=== PATIENT | male | born 1980 | race Caucasian/White ===

== ENCOUNTER 2017-05-22 21:38 | Inpatient (IN) | payer BC ==
[~2017-05-22] VITALS: Ht 167.6 cm; Wt 88.8 kg
[2017-05-22] MEDS ORDERED: TAMS-14 PO (22:27)
[2017-05-22] MEDS ORDERED: HYDR4TAB PO (22:27)
[2017-05-22] MEDS ORDERED: VANC1VIA2 IV (22:27)
[2017-05-22] MEDS ORDERED: LITH600C2 PO (22:27)
[2017-05-22] MEDS ORDERED: SAN30GM TOP (22:27)
[2017-05-22] MEDS ORDERED: ZOS3375I IV (22:27)
[2017-05-22] MEDS ORDERED: ONDA-43 IV (22:27)
[2017-05-22] MEDS ORDERED: ACET500C5 PO (22:27)
[2017-05-22] MEDS ORDERED: BACL10TA PO (22:27)
[2017-05-22] MEDS ORDERED: ASPI325T4 PO (22:27)
[2017-05-22] MEDS ORDERED: DULO60CA6 PO (22:27)
[2017-05-22] MEDS ORDERED: GABA600T PO (22:27)
[2017-05-22] MEDS ORDERED: AMIT100T2 PO (22:27)
[2017-05-22 22:39] VITALS: Ht 167.6 cm; Wt 88.8 kg
[2017-05-22] MEDS: HYDROmorphONE 2 MG TAB PO PRN (23:16)
[2017-05-23] VITALS (12 sets, daily range): BP systolic 108–124; BP diastolic 51–79; PULSE 80–92; RESP 11–20
[2017-05-23] MEDS ORDERED: NACL 0.9% 3 ML SYG IV SCH
[2017-05-23] MEDS ORDERED: ACETAMINOPHEN 325 MG TAB PO PRN
[2017-05-23] MEDS ORDERED: BISACODYL (EC) 5 MG TAB PO PRN
[2017-05-23] MEDS ORDERED: VANCOMYCIN IV PER PHARMACY XX SCH
[2017-05-23] MEDS ORDERED: DOCUSATE SODIUM 100 MG CAP PO PRN
[2017-05-23] MEDS: SOD CHLORIDE 0.9% 1,000 ML IV SCH ×3 (00:21→20:46)
[2017-05-23] MEDS: HEPARIN 5,000 UNIT/0.5 ML VIAL SC SCH ×2 (00:22→05:42)
[2017-05-23] MEDS ORDERED: VANCOMYCIN 1.75 GM in NS 500 ML IVPB ONE (01:00)
[2017-05-23 01:34] LABS: ADD SCAN DIFF NO
[2017-05-23 01:45] LABS: BASOPHIL # 0.1 10^3/ul (0.0-0.1); BASOPHILS % 1.7 % (0.0-2.0); EOSINOPHILS # 0.5 10^3/ul (0.0-0.5); EOSINOPHILS % 5.9 % (0.0-7.0); HEMATOCRIT 30.6 % (42.0-52.0); HEMOGLOBIN 9.5 g/dl (14.0-18.0); LYMPHOCYTES # 1.9 10^3/ul (0.8-2.9); LYMPHOCYTES % 22.2 % (15.0-51.0); MEAN CORPUSCULAR HEMOGLOBIN 26.3 pg (29.0-33.0); MEAN CORPUSCULAR VOLUME 84.8 fl (82.0-101.0); MEAN PLATELET VOLUME 9.5 fl (7.4-10.4); MONOCYTE # 0.7 10^3/ul (0.3-0.9); MONOCYTES % 8.5 % (0.0-11.0); NEUTROPHIL # 5.2 10^3/ul (1.6-7.5); NEUTROPHILS % 61.5 % (39.0-77.0); PLATELET COUNT 385 10^3/UL (140-415); RED BLOOD COUNT 3.61 10^6/ul (4.70-6.10); WHITE BLOOD COUNT 8.5 10^3/ul (4.8-10.8)
[2017-05-23 02:12] LABS: ALBUMIN 4.4 g/dl (3.3-4.9); ALBUMIN/GLOBULIN RATIO 1.83; BILIRUBIN,INDIRECT 0.1 mg/dl (0-1.1); BILIRUBIN,TOTAL 0.1 mg/dl (0.2-1.3); CALCIUM 9.7 mg/dl (8.4-10.2); CREATININE 0.74 mg/dl (0.61-1.24); POTASSIUM 3.5 mmol/L (3.5-5.1); TOTAL PROTEIN 6.8 g/dl (6.1-8.1)
[2017-05-23] MEDS: HYDROmorphONE 2 MG TAB PO PRN ×5 (04:24→21:06)
[2017-05-23] MEDS: PANTOPRAZOLE 40 MG INJ IV SCH (05:34)
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
[2017-05-23] MEDS ORDERED: PIPERACILLIN IV SCH (06:00)
[2017-05-23] MEDS ORDERED: TAZO IV SCH (06:00)
[2017-05-23 06:05] LABS: ADD SCAN DIFF NO; BASOPHIL # 0.1 10^3/ul (0.0-0.1); BASOPHILS % 1.1 % (0.0-2.0); EOSINOPHILS # 0.5 10^3/ul (0.0-0.5); EOSINOPHILS % 6.7 % (0.0-7.0); HEMOGLOBIN 9.7 g/dl (14.0-18.0); LYMPHOCYTES # 1.5 10^3/ul (0.8-2.9); LYMPHOCYTES % 19.5 % (15.0-51.0); MEAN CORPUSCULAR HEMOGLOBIN 26.4 pg (29.0-33.0); MEAN CORPUSCULAR HGB CONC 31.3 g/dl (32.0-37.0); MEAN CORPUSCULAR VOLUME 84.2 fl (82.0-101.0); MEAN PLATELET VOLUME 9.5 fl (7.4-10.4); MONOCYTE # 0.7 10^3/ul (0.3-0.9); MONOCYTES % 9.8 % (0.0-11.0); NEUTROPHIL # 4.6 10^3/ul (1.6-7.5); NEUTROPHILS % 62.5 % (39.0-77.0); PLATELET COUNT 384 10^3/UL (140-415); RED BLOOD COUNT 3.68 10^6/ul (4.70-6.10); RED CELL DISTRIBUTION WIDTH 13.9 % (11.5-14.5); WHITE BLOOD COUNT 7.4 10^3/ul (4.8-10.8)
[2017-05-23 06:17] LABS: ALBUMIN 4.3 g/dl (3.3-4.9); ALBUMIN/GLOBULIN RATIO 2.04; BILIRUBIN,INDIRECT 0.2 mg/dl (0-1.1); BILIRUBIN,TOTAL 0.2 mg/dl (0.2-1.3); CALCIUM 9.9 mg/dl (8.4-10.2); CHOL/HDL RATIO 2.9 RATIO; CREATININE 0.73 mg/dl (0.61-1.24); POTASSIUM 4.1 mmol/L (3.5-5.1); TOTAL PROTEIN 6.4 g/dl (6.1-8.1)
[2017-05-23] MEDS: PIPER-TAZO 3.375 GM IV (PMX) 100 ML IVPB SCH ×3 (06:20→21:06)
[2017-05-23 06:44] LABS: THYROID STIMULATING HORMONE 3.52 MIU/L (0.465-4.680)
[2017-05-23] MEDS ORDERED: FENTAnyl 250MCG INJ ONE (07:00)
[2017-05-23] MEDS ORDERED: MIDAZOLAM 1 MG/ML 2 ML INJ ONE (07:00)
[2017-05-23] MEDS: GABAPENTIN 300 MG CAP PO SCH ×3 (08:39→20:37)
[2017-05-23] MEDS: VANCOMYCIN 1 GM in NS 250 ML IVPB SCH ×2 (08:39→17:02)
[2017-05-23] MEDS: BACLOFEN 10 MG TAB PO SCH ×3 (08:39→20:36)
[2017-05-23] MEDS: ASPIRIN 325 MG TAB PO SCH (08:39)
[2017-05-23] MEDS: DULOXETINE 30 MG CAP DR PO SCH (08:40)
[2017-05-23] MEDS: COLLAGENASE 30 GM TUBE TOP SCH (09:00)
--- NOTE | 2017-05-23 09:39 | HPN ---
Date/Time of Note Date/Time of Note DATE: 05/23/17 TIME: 09:39 Interval H&P Admission Note Pt. seen H&P reviewed: No system changes SARAH WISE MD May 23, 2017 09:39
[2017-05-23] MEDS ORDERED: POLYMYXIN B 500000 UNIT INJ ONE (18:33)
[2017-05-23] MEDS ORDERED: PROPOFOL 40 ML ONE (18:34)
[2017-05-23] MEDS ORDERED: LIDOCAINE 2% (SDV) 5 ML INJ ONE (19:10)
[2017-05-23] MEDS ORDERED: PROPOFOL 20 ML ONE (19:11)
[2017-05-23] MEDS ORDERED: hydrALAzine 20 MG INJ IV PRN (19:30)
[2017-05-23] MEDS ORDERED: OXYCODONE/ACETAMINOPHEN (5/325) TAB PO PRN ×2 (19:30)
[2017-05-23] MEDS ORDERED: FENTAnyl 50 MCG/ML VIAL IV PRN ×3 (19:30)
[2017-05-23] MEDS ORDERED: LABETALOL HCL 20MG INJ IV PRN (19:30)
[2017-05-23] MEDS ORDERED: ONDANSETRON 4 MG INJ IV PRN ×2 (19:30)
[2017-05-23] MEDS ORDERED: HYDROmorphONE (0.2 MG/ML) 10ML SYG IV PRN ×3 (19:30)
[2017-05-23] MEDS ORDERED: MEPERIDINE 25 MG INJ IV PRN (19:30)
[2017-05-23] MEDS ORDERED: DIPHENHYDRAMINE 50 MG INJ IV PRN (19:30)
[2017-05-23] MEDS ORDERED: EPHEDrine SULFATE 50 MG/5 ML SYG IV PRN (19:30)
[2017-05-23] MEDS: TAMSULOSIN (SR) 0.4 MG CAP PO SCH (20:36)
[2017-05-23] MEDS: AMITRIPTYLINE 50 MG TAB PO SCH (20:36)
[2017-05-23] MEDS: LITHIUM CARBONATE 300 MG CAP PO SCH (20:37)
--- NOTE | 2017-05-24 01:02 | RADRPT ---
PROCEDURE: Noncontrast MRI of the right lower extremity. CLINICAL INDICATION: Amputation at the right knee, with soft tissue defects and osteomyelitis. TECHNIQUE: Noncontrast MRI of the distal right femur, with axial, sagittal and coronal images. T1 -weighted and STIR sequences were employed. COMPARISON: None. FINDINGS: Decreased T1-weighted signal and increased fluid-sensitive STIR signal at the bilateral femoral cond yles, greater at the posterior medial femoral condyle, compatible with osteomyelitis. There is a so ft tissue defect at the posterior medial left knee, with fistulous connection between the skin and t he periosteum at the posterior medial femoral condyle, supporting a radiographic diagnosis of osteom yelitis. Soft tissue defect is also questioned at the lateral femoral condyle, with possible osseous defect suggesting active osteomyelitis. Fluid is seen in the region of the distal femoral condyles. There is no definite abscess. Contrast enhanced examination may be more sensitive and specific for detecting a soft tissue abscess, if cli nically required. IMPRESSION: Osteomyelitis of the medial and lateral femoral condyles, with bilateral soft tissue defects. RPTAT: [facility] Physician Karen Date Time Electronically viewed and signed by Physician Karen on 05/24/2017 01:02 RS/
[2017-05-24] MEDS: VANCOMYCIN 1 GM in NS 250 ML IVPB SCH ×3 (01:42→18:07)
[2017-05-24 02:00] VITALS: BP 120/71; RESP 20
[2017-05-24] MEDS: HYDROmorphONE 2 MG TAB PO PRN ×5 (03:07→20:28)
[2017-05-24] MEDS: PIPER-TAZO 3.375 GM IV (PMX) 100 ML IVPB SCH ×3 (05:32→22:01)
[2017-05-24] MEDS: PANTOPRAZOLE 40 MG INJ IV SCH (05:32)
[2017-05-24 06:03] LABS: ADD SCAN DIFF NO
[2017-05-24 06:06] LABS: BASOPHIL # 0.1 10^3/ul (0.0-0.1); BASOPHILS % 1.1 % (0.0-2.0); EOSINOPHILS # 0.4 10^3/ul (0.0-0.5); EOSINOPHILS % 5.7 % (0.0-7.0); HEMATOCRIT 32.3 % (42.0-52.0); HEMOGLOBIN 9.9 g/dl (14.0-18.0); LYMPHOCYTES # 1.7 10^3/ul (0.8-2.9); LYMPHOCYTES % 26.1 % (15.0-51.0); MEAN CORPUSCULAR HEMOGLOBIN 26.5 pg (29.0-33.0); MEAN CORPUSCULAR HGB CONC 30.7 g/dl (32.0-37.0); MEAN CORPUSCULAR VOLUME 86.6 fl (82.0-101.0); MEAN PLATELET VOLUME 9.3 fl (7.4-10.4); MONOCYTE # 0.7 10^3/ul (0.3-0.9); MONOCYTES % 11.5 % (0.0-11.0); NEUTROPHIL # 3.5 10^3/ul (1.6-7.5); NEUTROPHILS % 55.3 % (39.0-77.0); PLATELET COUNT 423 10^3/UL (140-415); RED BLOOD COUNT 3.73 10^6/ul (4.70-6.10); RED CELL DISTRIBUTION WIDTH 13.5 % (11.5-14.5); WHITE BLOOD COUNT 6.4 10^3/ul (4.8-10.8)
[2017-05-24 06:31] LABS: CREATININE 0.84 mg/dl (0.61-1.24); POTASSIUM 4.1 mmol/L (3.5-5.1)
[2017-05-24 06:32] LABS: INR 0.97; PROTIME 12.9 Sec (12.2-14.2)
[2017-05-24] MEDS: COLLAGENASE 30 GM TUBE TOP SCH (09:00)
[2017-05-24 09:13] VITALS: BP 130/68; RESP 18
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
[2017-05-24] MEDS: GABAPENTIN 300 MG CAP PO SCH ×3 (10:48→22:02)
[2017-05-24] MEDS: ASPIRIN 325 MG TAB PO SCH (10:48)
[2017-05-24] MEDS: BACLOFEN 10 MG TAB PO SCH ×3 (10:48→22:01)
[2017-05-24] MEDS: DULOXETINE 30 MG CAP DR PO SCH (10:48)
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
[2017-05-24 14:54] VITALS: BP 130/72; RESP 20
[2017-05-24] MEDS: SOD CHLORIDE 0.9% 1,000 ML IV SCH (15:42)
--- NOTE | 2017-05-24 16:19 | PN ---
Date/Time of Note Date/Time of Note DATE: 05/24/17 TIME: 16:10 Assessment/Plan VTE Prophylaxis VTE Prophylaxis Intervention: other Lines/Catheters IV Catheter Type (from Nrs): Peripheral IV Urinary Cath still in place: No Assessment/Plan Assessment/Plan 1. Right lower extremity oqzmc-luo-ylpf amputation stump wound infection with dehiscence and necrosis, osteomyelitis of the medial and lateral femoral condyles, s/p debridement 05/24/2017, on antibiotics(vanco/zosyn) 2. Bipolar disorder, lithium, cymbalta 3. DVT prophylaxis: Exam/Review of Systems Vital Signs Vitals Vital Signs Date Time Temp Pulse Resp B/P Pulse Ox O2 Delivery O2 Flow Rate FiO2 05/24/17 14:54 98.1 101 20 130/72 99 05/23/17 20:06 Room Air Intake and Output 05/23/17 05/23/17 05/24/17 15:00 23:00 07:00 Intake Total 100 ml 2160 ml 1650 ml Output Total 60 ml Balance 100 ml 2100 ml 1650 ml Results Result Diagram: 05/24/17 0520 05/24/17 0520 Results 24 hrs Laboratory Tests Test 05/23/17 23:59 05/24/17 05:20 Vancomycin Level Trough 12.9 White Blood Count 6.4 Red Blood Count 3.73 L Hemoglobin 9.9 L Hematocrit 32.3 L Mean Corpuscular Volume 86.6 Mean Corpuscular Hemoglobin 26.5 L Mean Corpuscular Hemoglobin Concent 30.7 L Red Cell Distribution Width 13.5 Platelet Count 423 H Mean Platelet Volume 9.3 Neutrophils % 55.3 Lymphocytes % 26.1 Monocytes % 11.5 H Eosinophils % 5.7 Basophils % 1.1 Nucleated Red Blood Cells % 0.0 Neutrophils # 3.5 Lymphocytes # 1.7 Monocytes # 0.7 Eosinophils # 0.4 Basophils # 0.1 Nucleated Red Blood Cells # 0.0 Prothrombin Time 12.9 Prothrombin Time Ratio 1.0 INR International Normalized Ratio 0.97 Activated Partial Thromboplast Time 35.0 Sodium Level 137 Potassium Level 4.1 Chloride Level 108 Carbon Dioxide Level 26 Anion Gap 7 L Blood Urea Nitrogen 11 Creatinine 0.84 Glucose Level 96 Calcium Level 9.0 Medications Medications Current Medications Hydromorphone HCl 4 mg 4 mg Q4H PRN PO PAIN Last administered on 05/24/17 16: 07; Admin Dose 4 MG; Start 05/22/17 at 23:30 Sodium Chloride (NS) 1,000 ml @ 75 mls/hr [id number] IV Last administered on 05/23 20:46; Admin Dose 75 MLS/HR; Start 05/22/17 at 23:42 Ondansetron HCl (Zofran Inj) 4 mg Q6H PRN IV NAUSEA AND/OR VOMITING; Start 10/28 at 00:00 Acetaminophen (Tylenol Tab) 650 mg Q6H PRN PO PAIN LEVEL 1-3 OR FEVER; Start at 00:00 Docusate Sodium (Colace) 100 mg Q12H PRN PO CONSTIPATION; Start 05/23/17 at 00: 00 Bisacodyl (Dulcolax) 5 mg DAILY PRN PO CONSTIPATION; Start 05/23/17 at 00:00 Amitriptyline HCl (Elavil) 100 mg QHS PO Last administered on 05/23/17 20:36; Admin Dose 100 MG; Start 05/23/17 at 21:00 Aspirin (Aspirin) 325 mg DAILY PO Last administered on 05/24/17 10:48; Admin Dose 325 MG; Start 05/23/17 at 09:00 Baclofen (Lioresal) 10 mg TID PO Last administered on 05/24/17 13:02; Admin Dose 10 MG; Start 05/23/17 at 09:00 Collagenase (Santyl) 1 applic DAILY TOP ; Start 05/23/17 at 09:00 Duloxetine HCl (Cymbalta) 60 mg DAILY PO Last administered on 05/24/17 10:48; Admin Dose 60 MG; Start 05/23/17 at 09:00 Gabapentin (Neurontin) 600 mg TID PO Last administered on 05/24/17 13:02; Admin Dose 600 MG; Start 05/23/17 at 09:00 [place] Carbonate ([place] Carbonate) 600 mg QHS PO Last administered on 20:37; Admin Dose 600 MG; Start 05/23/17 at 21:00 Tamsulosin HCl 0.4 mg 0.4 mg DAILY@21 PO Last administered on 05/23/17 20:36; Admin Dose 0.4 MG; Start 05/23/17 at 21:00 Piperacillin Sod/ Tazobactam Sod 100 ml @ 200 mls/hr Q8 IVPB Last administered on 05/24/17 16:07; Admin Dose 200 MLS/HR; Start 05/23/17 at 06:00 Vancomycin HCl (Vancocin) 250 ml @ 125 mls/hr Q8H IVPB Last administered on 10:48; Admin Dose 125 MLS/HR; Start 05/23/17 at 09:00 Pantoprazole (Protonix Tab) 40 mg DAILY@06 PO ; Start 05/25/17 at 06:00 NILSON MITCHELL MD May 24, 2017 16:19
--- NOTE | 2017-05-24 19:38 | EN ---
Date/Time of Note Date/Time of Note DATE: 05/24/17 TIME: 19:33 Event Note Medicine Medicine Event Note PROGRESS NOTE DATE OF SERVICE: 05/23/17 SUBJECTIVE: pain R LE OBJECTIVE: Temperature 97.6 pulse 92 respirations 12 blood pressure 116/79 saturations 97% on room air General: Patient is lying in bed in no acute distress. HEENT: Atraumatic, normocephalic. The pupils are equal, round and reactive. Extraocular motor are intact Neck: Supple with full range of motion. No rigidity or meningismus Chest: Nontender Lungs: Clear to auscultation bilaterally no crackles rales or wheezing Heart: Normal S1-S2, Regular rhythm and rate. No overt murmur appreciated Abdomen: Soft , nontender, nondistended , bowel sounds are present. No guarding no rebound tenderness , No masses or organomegaly. No costovertebral temporal angle mass Extremities: Right stump with wound VAC placed with drainage into the wound VAC. No bleeding appreciated. Neurologic: Normal mental status, speech normal, cranial nerves II through XII are intact, motor and sensory are intact, no focal weakness ASSESSMENT: 1. Right lower extremity traumatic injury status post qdsap-cnn-ginh amputation with infected stump wound: no osteo on imaging, await vascular recs / f/u cultures / cont abx / ID consult pending 2. Bipola d/o: stable, continue home meds Prophylaxis: Heparin TONY MAYBERRY May 24, 2017 19:38
[2017-05-24 20:10] VITALS: BP 123/66; RESP 18
[2017-05-24] MEDS: TAMSULOSIN (SR) 0.4 MG CAP PO SCH (22:01)
[2017-05-24] MEDS: AMITRIPTYLINE 50 MG TAB PO SCH (22:01)
[2017-05-24] MEDS: LITHIUM CARBONATE 300 MG CAP PO SCH (22:02)
[2017-05-25] MEDS ORDERED: HYDROmorphONE 1 MG/ML SYG IV ONE (00:13)
[2017-05-25] MEDS: VANCOMYCIN 1 GM in NS 250 ML IVPB SCH ×3 (00:57→17:03)
[2017-05-25 02:27] VITALS: BP 130/66; RESP 18
[2017-05-25] MEDS: SOD CHLORIDE 0.9% 1,000 ML IV SCH ×2 (05:02→12:03)
[2017-05-25] MEDS: PIPER-TAZO 3.375 GM IV (PMX) 100 ML IVPB SCH ×3 (05:07→22:01)
[2017-05-25] MEDS: PANTOPRAZOLE (EC) 40 MG TAB PO SCH (05:07)
[2017-05-25 06:36] LABS: ADD SCAN DIFF NO
[2017-05-25 06:51] LABS: BASOPHIL # 0.1 10^3/ul (0.0-0.1); BASOPHILS % 1.5 % (0.0-2.0); EOSINOPHILS # 0.5 10^3/ul (0.0-0.5); EOSINOPHILS % 6.5 % (0.0-7.0); HEMATOCRIT 31.3 % (42.0-52.0); HEMOGLOBIN 9.5 g/dl (14.0-18.0); LYMPHOCYTES # 1.7 10^3/ul (0.8-2.9); LYMPHOCYTES % 24.1 % (15.0-51.0); MEAN CORPUSCULAR HEMOGLOBIN 25.7 pg (29.0-33.0); MEAN CORPUSCULAR HGB CONC 30.4 g/dl (32.0-37.0); MEAN CORPUSCULAR VOLUME 84.8 fl (82.0-101.0); MEAN PLATELET VOLUME 9.2 fl (7.4-10.4); MONOCYTE # 0.7 10^3/ul (0.3-0.9); MONOCYTES % 9.4 % (0.0-11.0); NEUTROPHIL # 4.1 10^3/ul (1.6-7.5); NEUTROPHILS % 58.1 % (39.0-77.0); PLATELET COUNT 381 10^3/UL (140-415); RED BLOOD COUNT 3.69 10^6/ul (4.70-6.10); RED CELL DISTRIBUTION WIDTH 13.6 % (11.5-14.5); WHITE BLOOD COUNT 7.1 10^3/ul (4.8-10.8)
[2017-05-25 07:08] LABS: CALCIUM 9.4 mg/dl (8.4-10.2); CREATININE 0.77 mg/dl (0.61-1.24); POTASSIUM 3.9 mmol/L (3.5-5.1)
[2017-05-25 07:45] VITALS: BP 136/78; RESP 17
--- NOTE | 2017-05-25 08:09 | PN ---
Date/Time of Note Date/Time of Note DATE: 05/25/17 TIME: 08:07 Assessment/Plan Lines/Catheters IV Catheter Type (from Nrs): Peripheral IV Osei in Place (from Nrs): No Assessment/Plan Chief Complaint/Hosp Course -Will change vac and evaluate for granulation tissue, bone was exposed so need to develop adequate granulation prior to discharge Problems: Subjective 24 Hr Interval Summary no new vascular events overnight Exam/Review of Systems Vital Signs Vitals Vital Signs Date Time Temp Pulse Resp B/P Pulse Ox O2 Delivery O2 Flow Rate FiO2 05/25/17 02:27 98.3 73 18 130/66 95 05/23/17 20:06 Room Air Intake and Output 05/24/17 05/24/17 05/25/17 15:00 23:00 07:00 Intake Total 250 ml 1950 ml 1970 ml Output Total 0 ml Balance 250 ml 1950 ml 1970 ml Exam Free Text/Dictation RLE: palpable femoral pulse, motor/sensory intact, vac intact and functional Constitutional: alert, oriented Respiratory: clear to auscultation Cardiovascular: regular rate and rhythm Gastrointestinal: bowel sounds, nl liver, spleen, non-tender, soft Results Result Diagram: 05/25/17 0558 05/25/17 0558 SARAH WISE MD May 25, 2017 08:09
[2017-05-25] MEDS: ASPIRIN 325 MG TAB PO SCH (08:30)
[2017-05-25] MEDS: HYDROmorphONE 2 MG TAB PO PRN ×2 (08:30→12:32)
[2017-05-25] MEDS: BACLOFEN 10 MG TAB PO SCH ×3 (08:30→20:57)
[2017-05-25] MEDS: GABAPENTIN 300 MG CAP PO SCH ×3 (08:30→20:57)
[2017-05-25] MEDS: DULOXETINE 30 MG CAP DR PO SCH (08:30)
[2017-05-25] MEDS: COLLAGENASE 30 GM TUBE TOP SCH (09:00)
[2017-05-25 14:24] VITALS: BP 135/78; RESP 18
--- NOTE | 2017-05-25 16:24 | PN ---
Date/Time of Note Date/Time of Note DATE: 05/25/17 TIME: 16:19 Assessment/Plan VTE Prophylaxis VTE Prophylaxis Intervention: LMWH Lines/Catheters IV Catheter Type (from [place]): Peripheral IV Urinary Cath still in place: No Assessment/Plan Assessment/Plan 1. Right lower extremity [id number] amputation stump wound infection with dehiscence and necrosis, osteomyelitis of the medial and lateral femoral condyles, s/p debridement 05/24/2017, on antibiotics(vanco/zosyn), ID consult( Dr. Mcneil), follow up with surgery 2. Bipolar disorder, lithium, cymbalta 3. DVT prophylaxis: Subjective 24 Hr Interval Summary Free Text/Dictation afebrile Exam/Review of Systems Vital Signs Vitals Vital Signs Date Time Temp Pulse Resp B/P Pulse Ox O2 Delivery O2 Flow Rate FiO2 05/25/17 14:24 98.4 92 18 135/78 99 05/23/17 20:06 Room Air Intake and Output 05/24/17 05/24/17 05/25/17 15:00 23:00 07:00 Intake Total 250 ml 1950 ml 1970 ml Output Total 0 ml Balance 250 ml 1950 ml 1970 ml Exam Constitutional: alert, oriented, well developed Psych: nl mood/affect, no complaints Head: atraumatic, normocephalic Eyes: EOMI, PERRL, nl conjunctiva, nl lids, nl sclera ENMT: nl external ears & nose, nl lips & teeth, nl nasal mucosa & septum Neck: supple Respiratory: clear to auscultation, normal air movement, No congested cough, No crackles/rales, No diminished breath sounds, No intercostal retraction, No labored breathing, No other, No respirations, No tactile fremitus, No wheezing Cardiovascular: nl pulses, regular rate and rhythm, No S3, No S4, No bruits, No diastolic murmur, No edema, No gallop, No irregular rhythm, No jugular venous distention (JVD), No murmurs/extra sounds, No other, No rub, No systolic murmur Gastrointestinal: nl liver, spleen, non-tender, soft Musculoskeletal: other (right AKA) Extremities: other (right AKA stump wound) Neurological: KINDER TEACHER II-XII intact, nl mental status, nl speech, nl strength Results Result Diagram: 05/25/17 0558 05/25/17 0558 Results 24 hrs Laboratory Tests Test 05/25/17 05:58 White Blood Count 7.1 Red Blood Count 3.69 L Hemoglobin 9.5 L Hematocrit 31.3 L Mean Corpuscular Volume 84.8 Mean Corpuscular Hemoglobin 25.7 L Mean Corpuscular Hemoglobin Concent 30.4 L Red Cell Distribution Width 13.6 Platelet Count 381 Mean Platelet Volume 9.2 Neutrophils % 58.1 Lymphocytes % 24.1 Monocytes % 9.4 Eosinophils % 6.5 Basophils % 1.5 Nucleated Red Blood Cells % 0.0 Neutrophils # 4.1 Lymphocytes # 1.7 Monocytes # 0.7 Eosinophils # 0.5 Basophils # 0.1 Nucleated Red Blood Cells # 0.0 Sodium Level 138 Potassium Level 3.9 Chloride Level 108 Carbon Dioxide Level 26 Anion Gap 8 Blood Urea Nitrogen 10 Creatinine 0.77 Glucose Level 107 Calcium Level 9.4 Medications Medications Current Medications Hydromorphone HCl 4 mg 4 mg Q4H PRN PO PAIN Last administered on 05/25/17 12: 32; Admin Dose 4 MG; Start 05/22/17 at 23:30 Sodium Chloride (NS) 1,000 ml @ 75 mls/hr [id number] IV Last administered on 05/25 12:03; Admin Dose 75 MLS/HR; Start 05/22/17 at 23:42 Ondansetron HCl (Zofran Inj) 4 mg Q6H PRN IV NAUSEA AND/OR VOMITING; Start 10/28 at 00:00 Acetaminophen (Tylenol Tab) 650 mg Q6H PRN PO PAIN LEVEL 1-3 OR FEVER; Start at 00:00 Docusate Sodium (Colace) 100 mg Q12H PRN PO CONSTIPATION; Start 05/23/17 at 00: 00 Bisacodyl (Dulcolax) 5 mg DAILY PRN PO CONSTIPATION; Start 05/23/17 at 00:00 Amitriptyline HCl (Elavil) 100 mg QHS PO Last administered on 05/24/17 22:01; Admin Dose 100 MG; Start 05/23/17 at 21:00 Aspirin (Aspirin) 325 mg DAILY PO Last administered on 05/25/17 08:30; Admin Dose 325 MG; Start 05/23/17 at 09:00 Baclofen (Lioresal) 10 mg TID PO Last administered on 05/25/17 13:36; Admin Dose 10 MG; Start 05/23/17 at 09:00 Collagenase (Santyl) 1 applic DAILY TOP ; Start 05/23/17 at 09:00 Duloxetine HCl (Cymbalta) 60 mg DAILY PO Last administered on 05/25/17 08:30; Admin Dose 60 MG; Start 05/23/17 at 09:00 Gabapentin (Neurontin) 600 mg TID PO Last administered on 05/25/17 13:36; Admin Dose 600 MG; Start 05/23/17 at 09:00 [place] Carbonate ([place] Carbonate) 600 mg QHS PO Last administered on 22:02; Admin Dose 600 MG; Start 05/23/17 at 21:00 Tamsulosin HCl 0.4 mg 0.4 mg DAILY@21 PO Last administered on 05/24/17 22:01; Admin Dose 0.4 MG; Start 05/23/17 at 21:00 Piperacillin Sod/ Tazobactam Sod 100 ml @ 200 mls/hr Q8 IVPB Last administered on 05/25/17 13:36; Admin Dose 200 MLS/HR; Start 05/23/17 at 06:00 Vancomycin HCl (Vancocin) 250 ml @ 125 mls/hr Q8H IVPB Last administered on 08:29; Admin Dose 125 MLS/HR; Start 05/23/17 at 09:00 Pantoprazole (Protonix Tab) 40 mg DAILY@06 PO Last administered on 05/25/17 05 :07; Admin Dose 40 MG; Start 05/25/17 at 06:00 NILSON MITCHELL MD May 25, 2017 16:24
[2017-05-25] MEDS: HYDROmorphONE 1 MG/ML SYG IV PRN ×3 (17:03→23:14)
[2017-05-25] MEDS: ENOXAPARIN 40 MG/0.4 ML SYG SC SCH (17:10)
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
[2017-05-25 20:16] VITALS: BP 136/74; RESP 20
[2017-05-25] MEDS: TAMSULOSIN (SR) 0.4 MG CAP PO SCH (20:57)
[2017-05-25] MEDS: AMITRIPTYLINE 50 MG TAB PO SCH (20:57)
[2017-05-25] MEDS: LITHIUM CARBONATE 300 MG CAP PO SCH (20:57)
[2017-05-26] MEDS: VANCOMYCIN 1 GM in NS 250 ML IVPB SCH ×3 (00:47→17:37)
[2017-05-26 02:00] VITALS: BP 130/82; RESP 20
[2017-05-26] MEDS: PIPER-TAZO 3.375 GM IV (PMX) 100 ML IVPB SCH ×2 (05:52→13:20)
[2017-05-26] MEDS: PANTOPRAZOLE (EC) 40 MG TAB PO SCH (05:53)
[2017-05-26] MEDS: HYDROmorphONE 1 MG/ML SYG IV PRN ×8 (05:57→22:23)
[2017-05-26 07:33] LABS: ADD SCAN DIFF NO
[2017-05-26 07:35] VITALS: BP 133/65; RESP 16
[2017-05-26 07:38] LABS: BASOPHIL # 0.1 10^3/ul (0.0-0.1); BASOPHILS % 1.7 % (0.0-2.0); EOSINOPHILS # 0.5 10^3/ul (0.0-0.5); EOSINOPHILS % 7.4 % (0.0-7.0); HEMATOCRIT 32.4 % (42.0-52.0); LYMPHOCYTES # 1.6 10^3/ul (0.8-2.9); LYMPHOCYTES % 25.9 % (15.0-51.0); MEAN CORPUSCULAR HGB CONC 30.9 g/dl (32.0-37.0); MEAN CORPUSCULAR VOLUME 84.4 fl (82.0-101.0); MEAN PLATELET VOLUME 8.9 fl (7.4-10.4); MONOCYTE # 0.4 10^3/ul (0.3-0.9); NEUTROPHIL # 3.7 10^3/ul (1.6-7.5); NEUTROPHILS % 57.7 % (39.0-77.0); PLATELET COUNT 415 10^3/UL (140-415); RED BLOOD COUNT 3.84 10^6/ul (4.70-6.10); RED CELL DISTRIBUTION WIDTH 13.6 % (11.5-14.5); WHITE BLOOD COUNT 6.3 10^3/ul (4.8-10.8)
[2017-05-26] MEDS: SOD CHLORIDE 0.9% 1,000 ML IV SCH ×3 (07:42→21:02)
[2017-05-26 07:56] LABS: CALCIUM 9.7 mg/dl (8.4-10.2); CREATININE 0.7 mg/dl (0.61-1.24); POTASSIUM 3.6 mmol/L (3.5-5.1)
[2017-05-26] MEDS: GABAPENTIN 300 MG CAP PO SCH ×3 (08:17→20:47)
[2017-05-26] MEDS: ASPIRIN 325 MG TAB PO SCH (08:18)
[2017-05-26] MEDS: DULOXETINE 30 MG CAP DR PO SCH (08:18)
[2017-05-26] MEDS: BACLOFEN 10 MG TAB PO SCH ×3 (08:18→20:48)
[2017-05-26] MEDS: COLLAGENASE 30 GM TUBE TOP SCH (08:20)
[2017-05-26] MEDS: ENOXAPARIN 40 MG/0.4 ML SYG SC SCH (08:20)
--- NOTE | 2017-05-26 13:59 | PN ---
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 Or at the point where he can consider discharge planning although he will need ECF for the ongoing antibiotic therapy and wound VAC (2) Osteomyelitis of right femur Status: Chronic Comment: As per guidance from vascular surgery. Please note he has an appointment to see the surgeon did the original AKA procedure next week at [facility] Qualifiers: Osteomyelitis type: other chronic Qualified Code: M86.651 - Other chronic osteomyelitis of right femur Subjective 24 Hr Interval Summary Free Text/Dictation Charming gentleman sitting in bed. He reports he is having some modest pain at the stump but otherwise is well tolerating this. Constitutional: no complaints (Denies fever chills or sweats) Respiratory: no complaints (Denies cough shortness of breath) Cardiovascular: no complaints Gastrointestinal: no complaints Genitourinary: no complaints (Compensated with tamsulosin) Exam/Review of Systems Vital Signs Vitals Vital Signs Date Time Temp Pulse Resp B/P Pulse Ox O2 Delivery O2 Flow Rate FiO2 05/26/17 07:35 98.4 91 16 133/65 100 05/23/17 20:06 Room Air Intake and Output 05/25/17 05/25/17 05/26/17 15:00 23:00 07:00 Intake Total 100 ml 1470 ml 1560 ml Output Total 0 ml Balance 100 ml 1470 ml 1560 ml Exam Constitutional: alert, oriented Respiratory: clear to auscultation, normal air movement Gastrointestinal: nl liver, spleen, non-tender, soft Extremities: other (Status post right AKA with wound VAC in place) Results Result Diagram: 05/26/17 0719 05/26/17 0719 Results 24 hrs Laboratory Tests Test 05/26/17 07:19 White Blood Count 6.3 Red Blood Count 3.84 L Hemoglobin 10.0 L Hematocrit 32.4 L Mean Corpuscular Volume 84.4 Mean Corpuscular Hemoglobin 26.0 L Mean Corpuscular Hemoglobin Concent 30.9 L Red Cell Distribution Width 13.6 Platelet Count 415 Mean Platelet Volume 8.9 Neutrophils % 57.7 Lymphocytes % 25.9 Monocytes % 7.0 Eosinophils % 7.4 H Basophils % 1.7 Nucleated Red Blood Cells % 0.0 Neutrophils # 3.7 Lymphocytes # 1.6 Monocytes # 0.4 Eosinophils # 0.5 Basophils # 0.1 Nucleated Red Blood Cells # 0.0 Sodium Level 146 H Potassium Level 3.6 Chloride Level 105 Carbon Dioxide Level 27 Anion Gap 18 #H Blood Urea Nitrogen 7 Creatinine 0.70 Glucose Level 89 Calcium Level 9.7 Medications Medications Current Medications Sodium Chloride (NS) 1,000 ml @ 75 mls/hr [id number] IV Last administered on 05/25 12:03; Admin Dose 75 MLS/HR; Start 05/22/17 at 23:42 Ondansetron HCl (Zofran Inj) 4 mg Q6H PRN IV NAUSEA AND/OR VOMITING; Start 10/28 at 00:00 Acetaminophen (Tylenol Tab) 650 mg Q6H PRN PO PAIN LEVEL 1-3 OR FEVER; Start at 00:00 Docusate Sodium (Colace) 100 mg Q12H PRN PO CONSTIPATION; Start 05/23/17 at 00: 00 Bisacodyl (Dulcolax) 5 mg DAILY PRN PO CONSTIPATION; Start 05/23/17 at 00:00 Amitriptyline HCl (Elavil) 100 mg QHS PO Last administered on 05/25/17 20:57; Admin Dose 100 MG; Start 05/23/17 at 21:00 Aspirin (Aspirin) 325 mg DAILY PO Last administered on 05/26/17 08:18; Admin Dose 325 MG; Start 05/23/17 at 09:00 Baclofen (Lioresal) 10 mg TID PO Last administered on 05/26/17 13:20; Admin Dose 10 MG; Start 05/23/17 at 09:00 Collagenase (Santyl) 1 applic DAILY TOP ; Start 05/23/17 at 09:00 Duloxetine HCl (Cymbalta) 60 mg DAILY PO Last administered on 05/26/17 08:18; Admin Dose 60 MG; Start 05/23/17 at 09:00 Gabapentin (Neurontin) 600 mg TID PO Last administered on 05/26/17 13:20; Admin Dose 600 MG; Start 05/23/17 at 09:00 [place] Carbonate ([place] Carbonate) 600 mg QHS PO Last administered on 20:57; Admin Dose 600 MG; Start 05/23/17 at 21:00 Tamsulosin HCl 0.4 mg 0.4 mg DAILY@21 PO Last administered on 05/25/17 20:57; Admin Dose 0.4 MG; Start 05/23/17 at 21:00 Piperacillin Sod/ Tazobactam Sod 100 ml @ 200 mls/hr Q8 IVPB Last administered on 05/26/17 13:20; Admin Dose 200 MLS/HR; Start 05/23/17 at 06:00 Vancomycin HCl (Vancocin) 250 ml @ 125 mls/hr Q8H IVPB Last administered on 08:20; Admin Dose 125 MLS/HR; Start 05/23/17 at 09:00 Pantoprazole (Protonix Tab) 40 mg DAILY@06 PO Last administered on 05/26/17 05 :53; Admin Dose 40 MG; Start 05/25/17 at 06:00 Enoxaparin Sodium (Lovenox) 40 mg DAILY SC Last administered on 05/26/17 08:20 ; Admin Dose 40 MG; Start 05/25/17 at 16:30 Hydromorphone HCl (Dilaudid) 1 mg Q4H PRN IV PAIN Last administered on 11:02; Admin Dose 1 MG; Start 05/25/17 at 17:00 Hydromorphone HCl (Dilaudid) 0.5 mg Q2H PRN IV PAIN Last administered on 13:21; Admin Dose 0.5 MG; Start 05/25/17 at 22:00 PEG POLLACK MD May 26, 2017 13:59
[2017-05-26 14:35] VITALS: BP 127/69; RESP 16
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
[2017-05-26] MEDS: AMITRIPTYLINE 50 MG TAB PO SCH (20:47)
[2017-05-26] MEDS: LITHIUM CARBONATE 300 MG CAP PO SCH (20:47)
[2017-05-26] MEDS: TAMSULOSIN (SR) 0.4 MG CAP PO SCH (20:48)
[2017-05-26 20:49] VITALS: BP 142/83; RESP 20
[2017-05-26] MEDS: ERTAPENEM SODIUM 1 GM in SOD CHLORIDE 0.9% 100 ML IVPB SCH (21:13)
[2017-05-27] MEDS: VANCOMYCIN 1 GM in NS 250 ML IVPB SCH ×3 (01:34→17:31)
[2017-05-27 02:00] VITALS: BP 133/91; RESP 20
[2017-05-27] MEDS: HYDROmorphONE 1 MG/ML SYG IV PRN ×9 (04:02→22:29)
[2017-05-27] MEDS: PANTOPRAZOLE (EC) 40 MG TAB PO SCH (05:51)
[2017-05-27 07:24] LABS: ADD SCAN DIFF NO
[2017-05-27 07:26] LABS: BASOPHIL # 0.1 10^3/ul (0.0-0.1); BASOPHILS % 1.3 % (0.0-2.0); EOSINOPHILS # 0.4 10^3/ul (0.0-0.5); EOSINOPHILS % 7.2 % (0.0-7.0); HEMATOCRIT 30.6 % (42.0-52.0); HEMOGLOBIN 9.6 g/dl (14.0-18.0); LYMPHOCYTES # 1.6 10^3/ul (0.8-2.9); LYMPHOCYTES % 26.5 % (15.0-51.0); MEAN CORPUSCULAR HEMOGLOBIN 26.6 pg (29.0-33.0); MEAN CORPUSCULAR HGB CONC 31.4 g/dl (32.0-37.0); MEAN CORPUSCULAR VOLUME 84.8 fl (82.0-101.0); MEAN PLATELET VOLUME 9.3 fl (7.4-10.4); MONOCYTE # 0.6 10^3/ul (0.3-0.9); NEUTROPHIL # 3.4 10^3/ul (1.6-7.5); NEUTROPHILS % 55.5 % (39.0-77.0); PLATELET COUNT 418 10^3/UL (140-415); RED BLOOD COUNT 3.61 10^6/ul (4.70-6.10); RED CELL DISTRIBUTION WIDTH 13.3 % (11.5-14.5); WHITE BLOOD COUNT 6.1 10^3/ul (4.8-10.8)
[2017-05-27 07:50] LABS: C-REACTIVE PROTEIN 0.8 mg/dl (0.0-0.9); CREATININE 0.77 mg/dl (0.61-1.24); POTASSIUM 3.8 mmol/L (3.5-5.1)
[2017-05-27 08:24] VITALS: BP 126/70; RESP 18
[2017-05-27] MEDS: ASPIRIN 325 MG TAB PO SCH (08:35)
[2017-05-27] MEDS: BACLOFEN 10 MG TAB PO SCH ×3 (08:35→20:44)
[2017-05-27] MEDS: DULOXETINE 30 MG CAP DR PO SCH (08:35)
[2017-05-27] MEDS: GABAPENTIN 300 MG CAP PO SCH ×3 (08:38→20:45)
[2017-05-27] MEDS: ENOXAPARIN 40 MG/0.4 ML SYG SC SCH (08:40)
[2017-05-27] MEDS: COLLAGENASE 30 GM TUBE TOP SCH (08:40)
--- NOTE | 2017-05-27 10:07 | PN ---
Date/Time of Note Date/Time of Note DATE: 05/27/17 TIME: 10:02 Assessment/Plan VTE Prophylaxis VTE Prophylaxis Intervention: heparin Lines/Catheters IV Catheter Type (from [facility]): Peripheral IV Urinary Cath still in place: No Assessment/Plan Problems: (1) Osteomyelitis of right femur Status: Chronic Comment: Please see note from infectious disease. Will need delineation of how long to treat with antibiotics. Regrettably laboratory does not have specimens for culture apparently. Regarding discharge planning Dr. Carter he will handle the paperwork for the wound VAC Qualifiers: Osteomyelitis type: other chronic Qualified Code: M86.651 - Other chronic osteomyelitis of right femur Subjective 24 Hr Interval Summary Free Text/Dictation Patient awake and alert responding appropriately. No offered complaints Constitutional: no complaints Respiratory: no complaints Cardiovascular: no complaints Exam/Review of Systems Vital Signs Vitals Vital Signs Date Time Temp Pulse Resp B/P Pulse Ox O2 Delivery O2 Flow Rate FiO2 05/27/17 08:24 98.7 79 18 126/70 98 05/23/17 20:06 Room Air Intake and Output 05/26/17 05/26/17 05/27/17 15:00 23:00 07:00 Intake Total 350 ml 1640 ml 1975 ml Output Total 0 ml 50 ml Balance 350 ml 1640 ml 1925 ml Exam Constitutional: alert, oriented Respiratory: clear to auscultation, normal air movement Cardiovascular: nl pulses, regular rate and rhythm Gastrointestinal: nl liver, spleen, non-tender, soft Extremities: other (Right AKA wound with wound VAC) Results Result Diagram: 05/27/17 0606 05/27/17 0606 Results 24 hrs Laboratory Tests Test 05/27/17 06:04 05/27/17 06:06 05/27/17 07:47 Erythrocyte Sedimentation Rate 18 H White Blood Count 6.1 Red Blood Count 3.61 L Hemoglobin 9.6 L Hematocrit 30.6 L Mean Corpuscular Volume 84.8 Mean Corpuscular Hemoglobin 26.6 L Mean Corpuscular Hemoglobin Concent 31.4 L Red Cell Distribution Width 13.3 Platelet Count 418 H Mean Platelet Volume 9.3 Neutrophils % 55.5 Lymphocytes % 26.5 Monocytes % 9.0 Eosinophils % 7.2 H Basophils % 1.3 Nucleated Red Blood Cells % 0.0 Neutrophils # 3.4 Lymphocytes # 1.6 Monocytes # 0.6 Eosinophils # 0.4 Basophils # 0.1 Nucleated Red Blood Cells # 0.0 Sodium Level 145 H Potassium Level 3.8 Chloride Level 107 Carbon Dioxide Level 25 Anion Gap 17 H Blood Urea Nitrogen 10 Creatinine 0.77 Glucose Level 81 Calcium Level 9.0 C-Reactive Protein 0.8 Vancomycin Level Trough 15.2 Medications Medications Current Medications Sodium Chloride (NS) 1,000 ml @ 75 mls/hr [id number] IV Last administered on 05/26 17:39; Admin Dose 75 MLS/HR; Start 05/22/17 at 23:42 Ondansetron HCl (Zofran Inj) 4 mg Q6H PRN IV NAUSEA AND/OR VOMITING; Start 10/28 at 00:00 Acetaminophen (Tylenol Tab) 650 mg Q6H PRN PO PAIN LEVEL 1-3 OR FEVER; Start at 00:00 Docusate Sodium (Colace) 100 mg Q12H PRN PO CONSTIPATION; Start 05/23/17 at 00: 00 Bisacodyl (Dulcolax) 5 mg DAILY PRN PO CONSTIPATION; Start 05/23/17 at 00:00 Amitriptyline HCl (Elavil) 100 mg QHS PO Last administered on 05/26/17 20:47; Admin Dose 100 MG; Start 05/23/17 at 21:00 Aspirin (Aspirin) 325 mg DAILY PO Last administered on 05/27/17 08:35; Admin Dose 325 MG; Start 05/23/17 at 09:00 Baclofen (Lioresal) 10 mg TID PO Last administered on 05/27/17 08:35; Admin Dose 10 MG; Start 05/23/17 at 09:00 Collagenase (Santyl) 1 applic DAILY TOP ; Start 05/23/17 at 09:00 Duloxetine HCl (Cymbalta) 60 mg DAILY PO Last administered on 05/27/17 08:35; Admin Dose 60 MG; Start 05/23/17 at 09:00 Gabapentin (Neurontin) 600 mg TID PO Last administered on 05/27/17 08:38; Admin Dose 600 MG; Start 05/23/17 at 09:00 [place] Carbonate (Echo Carbonate) 600 mg QHS PO Last administered on 20:47; Admin Dose 600 MG; Start 05/23/17 at 21:00 Tamsulosin HCl 0.4 mg 0.4 mg DAILY@21 PO Last administered on 05/26/17 20:48; Admin Dose 0.4 MG; Start 05/23/17 at 21:00 Vancomycin HCl (Vancocin) 250 ml @ 125 mls/hr Q8H IVPB Last administered on 01:34; Admin Dose 125 MLS/HR; Start 05/23/17 at 09:00 Pantoprazole (Protonix Tab) 40 mg DAILY@06 PO Last administered on 05/27/17 05 :51; Admin Dose 40 MG; Start 05/25/17 at 06:00 Enoxaparin Sodium (Lovenox) 40 mg DAILY SC Last administered on 05/27/17 08:40 ; Admin Dose 40 MG; Start 05/25/17 at 16:30 Hydromorphone HCl (Dilaudid) 1 mg Q4H PRN IV PAIN Last administered on 08:38; Admin Dose 1 MG; Start 05/25/17 at 17:00 Hydromorphone HCl 0.5 mg 0.5 mg Q2H PRN IV PAIN Last administered on 05/27/17 06:07; Admin Dose 0.5 MG; Start 05/25/17 at 22:00 Ertapenem/Sodium Chloride (Invanz/NS) 100 ml @ 200 mls/hr Q24H IVPB Last administered on 05/26/17 21:13; Admin Dose 200 MLS/HR; Start 05/26/17 at 20:00 ; Stop 07/20/17 at 20:29 PEG POLLACK MD May 27, 2017 10:07
[2017-05-27] MEDS: SOD CHLORIDE 0.9% 1,000 ML IV SCH ×2 (10:22→23:42)
[2017-05-27] MEDS ORDERED: LIDOCAINE 1% (MPF) 5 ML VIAL SC ONE (10:30)
--- NOTE | 2017-05-27 14:56 | RADRPT ---
PROCEDURE: XR Chest. CLINICAL INDICATION: Line placement TECHNIQUE: Single AP view of the chest were obtained COMPARISON: None FINDINGS: Right-sided PICC line catheter is seen that extends into the right proximal internal jugular vein. That heart and mediastinum are within normal limits. The pulmonary vasculature are unremarkable. Th e aorta is grossly unremarkable. There is no lung consolidation, pleural effusion or pneumothorax. There is no acute osseous abnormality. IMPRESSION: Right PICC line central line catheter terminates in the right IJ and should be repositioned. Otherwise no acute pulmonary process. RPTAT: AA .Lanette Espitia MD, MD Date Time Electronically viewed and signed by .Lanette Espitia MD, MD on 05/27/2017 14:56 .J/
--- NOTE | 2017-05-27 15:35 | RADRPT ---
PROCEDURE: XR Chest. CLINICAL INDICATION: POST-PICC CXR#2 TECHNIQUE: Single frontal chest x-ray. COMPARISON: 02:43 p.m. FINDINGS: The lungs are clear of acute infiltrates, edema, effusions, or masses.. The cardiomediastinal silho uette is unremarkable. The osseous structures are intact. The right arm PICC line has been repositi oned with tip extending into the upper superior vena cava. IMPRESSION: No acute cardiopulmonary disease. Right arm PICC line repositioned with tip in the upper superior vena cava. RPTAT: HJPL .Og Harman MD, Date Time Electronically viewed and signed by .Og Harman MD, MD on 05/27/2017 15:34 .L/
--- NOTE | 2017-05-27 15:35 | RADRPT ---
PROCEDURE: XR Chest. CLINICAL INDICATION: PICC-LINE PLACEMENT CXR #3 TECHNIQUE: Single frontal chest x-ray. COMPARISON: 02:53 p.m. FINDINGS: The lungs are clear of acute infiltrates, edema, effusions, or masses.. The cardiomediastinal silho uette is unremarkable. The osseous structures are intact. There is a right arm PICC line guidewire extending to the superior vena cava. IMPRESSION: No acute cardiopulmonary disease. Right arm PICC line and guide wire extending to the superior vena cava. RPTAT: HJPL .Og Harman MD, Date Time Electronically viewed and signed by .Og Harman MD, on 05/27/2017 15:35 .L/
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
[2017-05-27] MEDS: ERTAPENEM SODIUM 1 GM in SOD CHLORIDE 0.9% 100 ML IVPB SCH (19:58)
[2017-05-27] MEDS: TAMSULOSIN (SR) 0.4 MG CAP PO SCH (20:44)
[2017-05-27] MEDS: LITHIUM CARBONATE 300 MG CAP PO SCH (20:44)
[2017-05-27] MEDS: AMITRIPTYLINE 50 MG TAB PO SCH (20:45)
[2017-05-27 20:51] VITALS: BP 137/33; RESP 20
[2017-05-28] MEDS: HYDROmorphONE 1 MG/ML SYG IV PRN ×7 (00:51→19:34)
[2017-05-28] MEDS: VANCOMYCIN 1 GM in NS 250 ML IVPB SCH ×3 (00:51→17:24)
[2017-05-28] MEDS: PANTOPRAZOLE (EC) 40 MG TAB PO SCH (06:01)
[2017-05-28 08:00] VITALS: BP 122/71; RESP 20
[2017-05-28] MEDS: DULOXETINE 30 MG CAP DR PO SCH (08:42)
[2017-05-28] MEDS: ASPIRIN 325 MG TAB PO SCH (08:43)
[2017-05-28] MEDS: BACLOFEN 10 MG TAB PO SCH ×3 (08:43→21:26)
[2017-05-28] MEDS: GABAPENTIN 300 MG CAP PO SCH ×3 (08:43→21:24)
[2017-05-28] MEDS: ENOXAPARIN 40 MG/0.4 ML SYG SC SCH (08:44)
[2017-05-28] MEDS: COLLAGENASE 30 GM TUBE TOP SCH (08:46)
[2017-05-28] MEDS: SOD CHLORIDE 0.9% 1,000 ML IV SCH (12:42)
[2017-05-28 14:00] VITALS: BP 124/73; RESP 16
--- NOTE | 2017-05-28 15:27 | CONS ---
Date/Time of Note Date/Time of Note DATE: 05/28/17 TIME: 15:27 Assessment/Plan Assessment/Plan Chief Complaint/Hosp Course Patient is alert looks comfortable denies pain he is afebrile Physical examination: Well-nourished, well-developed middle-aged white man who is alert in no distress. Head atraumatic normocephalic. Sclerae nonicteric. Neck is supple. Chest rise symmetrical, breath sounds clear. Abdomen soft, bowel sounds present. Extremities without cyanosis. Right stump wound to wound VAC, no erythema Assessment: 1. Right below-knee amputation stump osteomyelitis, status post stump revision on May 23, 2017 2. Bipolar disorder 3. Tobacco abuse Plan: Stable, on vancomycin and Invanz, status post PICC line, followed by multiple consultants, anticipate treating with long-term antibiotics. Problems: Consultation Date/Type/Reason Admit Date/Time May 22, 2017 at 21:38 Initial Consult Date Type of Consultation: id Exam/Review of Systems Vital Signs Vitals Vital Signs Date Time Temp Pulse Resp B/P Pulse Ox O2 Delivery O2 Flow Rate FiO2 05/28/17 14:00 98.4 84 16 124/73 99 Intake and Output 05/27/17 05/27/17 05/28/17 15:00 23:00 07:00 Intake Total 250 ml 2400 ml 2350 ml Output Total 0 ml 0 ml Balance 250 ml 2400 ml 2350 ml Results Result Diagram: 05/27/17 0606 05/27/17 0606 Medications Medications Current Medications Sodium Chloride (NS) 1,000 ml @ 75 mls/hr [id number] IV Last administered on 05/28t 12:42; Admin Dose 75 MLS/HR; Start 05/22/17 at 23:42 Ondansetron HCl (Zofran Inj) 4 mg Q6H PRN IV NAUSEA AND/OR VOMITING; Start 10/28 at 00:00 Acetaminophen (Tylenol Tab) 650 mg Q6H PRN PO PAIN LEVEL 1-3 OR FEVER; Start at 00:00 Docusate Sodium (Colace) 100 mg Q12H PRN PO CONSTIPATION; Start 05/23/17 at 00: 00 Bisacodyl (Dulcolax) 5 mg DAILY PRN PO CONSTIPATION; Start 05/23/17 at 00:00 Amitriptyline HCl (Elavil) 100 mg QHS PO Last administered on 05/27/17 20:45; Admin Dose 100 MG; Start 05/23/17 at 21:00 Aspirin (Aspirin) 325 mg DAILY PO Last administered on 05/28/17 08:43; Admin Dose 325 MG; Start 05/23/17 at 09:00 Baclofen (Lioresal) 10 mg TID PO Last administered on 05/28/17 12:18; Admin Dose 10 MG; Start 05/23/17 at 09:00 Collagenase (Santyl) 1 applic DAILY TOP ; Start 05/23/17 at 09:00 Duloxetine HCl (Cymbalta) 60 mg DAILY PO Last administered on 05/28/17 08:42; Admin Dose 60 MG; Start 05/23/17 at 09:00 Gabapentin (Neurontin) 600 mg TID PO Last administered on 05/28/17 12:18; Admin Dose 600 MG; Start 05/23/17 at 09:00 [place] Carbonate ([place] Carbonate) 600 mg QHS PO Last administered on 20:44; Admin Dose 600 MG; Start 05/23/17 at 21:00 Tamsulosin HCl 0.4 mg 0.4 mg DAILY@21 PO Last administered on 05/27/17 20:44; Admin Dose 0.4 MG; Start 05/23/17 at 21:00 Vancomycin HCl (Vancocin) 250 ml @ 125 mls/hr Q8H IVPB Last administered on 08:45; Admin Dose 125 MLS/HR; Start 05/23/17 at 09:00 Pantoprazole (Protonix Tab) 40 mg DAILY@06 PO Last administered on 05/28/17 06 :01; Admin Dose 40 MG; Start 05/25/17 at 06:00 Enoxaparin Sodium (Lovenox) 40 mg DAILY SC Last administered on 05/28/17 08:44 ; Admin Dose 40 MG; Start 05/25/17 at 16:30 Hydromorphone HCl (Dilaudid) 1 mg Q4H PRN IV PAIN Last administered on 14:21; Admin Dose 1 MG; Start 05/25/17 at 17:00 Hydromorphone HCl 0.5 mg 0.5 mg Q2H PRN IV PAIN Last administered on 05/28/17 12:18; Admin Dose 0.5 MG; Start 05/25/17 at 22:00 Ertapenem/Sodium Chloride (Invanz/NS) 100 ml @ 200 mls/hr Q24H IVPB Last administered on 05/27/17 19:58; Admin Dose 200 MLS/HR; Start 05/26/17 at 20:00 ; Stop 07/20/17 at 20:29 HOLLY PETERSON CLIENT SERVICE ASSOCIATE May 28, 2017 15:27
[2017-05-28] MEDS: oxyCODONE 5 MG TAB PO PRN ×2 (18:12→22:15)
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
[2017-05-28 20:08] VITALS: BP 139/92; RESP 18
[2017-05-28] MEDS: ERTAPENEM SODIUM 1 GM in SOD CHLORIDE 0.9% 100 ML IVPB SCH (21:25)
[2017-05-28] MEDS: AMITRIPTYLINE 50 MG TAB PO SCH (21:26)
[2017-05-28] MEDS: TAMSULOSIN (SR) 0.4 MG CAP PO SCH (21:26)
[2017-05-28] MEDS: LITHIUM CARBONATE 300 MG CAP PO SCH (21:27)
[2017-05-29] MEDS: VANCOMYCIN 1 GM in NS 250 ML IVPB SCH ×3 (01:07→16:49)
[2017-05-29 02:13] VITALS: BP 127/83; RESP 18
[2017-05-29] MEDS: SOD CHLORIDE 0.9% 1,000 ML IV SCH ×2 (02:22→16:08)
[2017-05-29] MEDS: HYDROmorphONE 1 MG/ML SYG IV PRN ×9 (02:46→22:17)
[2017-05-29] MEDS: PANTOPRAZOLE (EC) 40 MG TAB PO SCH (05:00)
[2017-05-29] MEDS: oxyCODONE 5 MG TAB PO PRN (05:00)
[2017-05-29 05:28] LABS: CALCIUM 9.2 mg/dl (8.4-10.2); CREATININE 0.66 mg/dl (0.61-1.24); PHOSPHORUS 4.3 mg/dl (2.5-4.9); POTASSIUM 3.8 mmol/L (3.5-5.1)
[2017-05-29 07:54] VITALS: BP 115/61; RESP 16
[2017-05-29] MEDS: COLLAGENASE 30 GM TUBE TOP SCH (09:00)
[2017-05-29] MEDS: ASPIRIN 325 MG TAB PO SCH (09:02)
[2017-05-29] MEDS: BACLOFEN 10 MG TAB PO SCH ×3 (09:02→20:23)
[2017-05-29] MEDS: ENOXAPARIN 40 MG/0.4 ML SYG SC SCH (09:02)
[2017-05-29] MEDS: GABAPENTIN 300 MG CAP PO SCH ×3 (09:02→20:23)
[2017-05-29] MEDS: DULOXETINE 30 MG CAP DR PO SCH (09:02)
[2017-05-29 14:00] VITALS: BP 114/61; RESP 16
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
--- NOTE | 2017-05-29 18:27 | CONS ---
Date/Time of Note Date/Time of Note DATE: 05/29/17 TIME: 18:25 Assessment/Plan Assessment/Plan Chief Complaint/Hosp Course Patient is alert looks comfortable denies pain he is afebrile, father at bedside Physical examination: Well-nourished, well-developed middle-aged white man who is alert in no distress. Head atraumatic normocephalic. Sclerae nonicteric. Neck is supple. Chest rise symmetrical, breath sounds clear. Abdomen soft, bowel sounds present. Extremities without cyanosis. Right stump wound to wound VAC, no erythema Assessment: 1. Right below-knee amputation stump osteomyelitis, status post stump revision on May 23, 2017 2. Bipolar disorder 3. Tobacco abuse Plan: Remain stable, on vancomycin and Invanz, status post PICC line, anticipate discharge on current antibiotics for 6 weeks. May substitute vancomycin with daptomycin once every 24 hours for convenience Discussed with patient and father at bedside Problems: Consultation Date/Type/Reason Admit Date/Time May 22, 2017 at 21:38 Type of Consultation: id Exam/Review of Systems Vital Signs Vitals Vital Signs Date Time Temp Pulse Resp B/P Pulse Ox O2 Delivery O2 Flow Rate FiO2 05/29/17 14:00 97.4 100 16 114/61 96 Intake and Output 05/28/17 05/28/17 05/29/17 15:00 23:00 07:00 Intake Total 470 ml 2770 ml 950 ml Balance 470 ml 2770 ml 950 ml Results Result Diagram: 05/27/17 0606 05/29/17 0440 Results 24 hrs Laboratory Tests Test 05/29/17 04:40 Sodium Level 144 Potassium Level 3.8 Chloride Level 104 Carbon Dioxide Level 28 Anion Gap 16 Blood Urea Nitrogen 8 Creatinine 0.66 Glucose Level 85 Calcium Level 9.2 Phosphorus Level 4.3 Magnesium Level 2.0 Medications Medications Current Medications Sodium Chloride (NS) 1,000 ml @ 75 mls/hr [id number] IV Last administered on 05/29t 16:08; Admin Dose 75 MLS/HR; Start 05/22/17 at 23:42 Ondansetron HCl (Zofran Inj) 4 mg Q6H PRN IV NAUSEA AND/OR VOMITING; Start 10/28 at 00:00 Acetaminophen (Tylenol Tab) 650 mg Q6H PRN PO PAIN LEVEL 1-3 OR FEVER; Start at 00:00 Docusate Sodium (Colace) 100 mg Q12H PRN PO CONSTIPATION; Start 05/23/17 at 00: 00 Bisacodyl (Dulcolax) 5 mg DAILY PRN PO CONSTIPATION; Start 05/23/17 at 00:00 Amitriptyline HCl (Elavil) 100 mg QHS PO Last administered on 05/28/17 21:26; Admin Dose 100 MG; Start 05/23/17 at 21:00 Aspirin (Aspirin) 325 mg DAILY PO Last administered on 05/29/17 09:02; Admin Dose 325 MG; Start 05/23/17 at 09:00 Baclofen (Lioresal) 10 mg TID PO Last administered on 05/29/17 12:30; Admin Dose 10 MG; Start 05/23/17 at 09:00 Collagenase (Santyl) 1 applic DAILY TOP ; Start 05/23/17 at 09:00 Duloxetine HCl (Cymbalta) 60 mg DAILY PO Last administered on 05/29/17 09:02; Admin Dose 60 MG; Start 05/23/17 at 09:00 Gabapentin (Neurontin) 600 mg TID PO Last administered on 05/29/17 12:30; Admin Dose 600 MG; Start 05/23/17 at 09:00 [place] Carbonate ([place] Carbonate) 600 mg QHS PO Last administered on 21:27; Admin Dose 600 MG; Start 05/23/17 at 21:00 Tamsulosin HCl 0.4 mg 0.4 mg DAILY@21 PO Last administered on 05/28/17 21:26; Admin Dose 0.4 MG; Start 05/23/17 at 21:00 Vancomycin HCl (Vancocin) 250 ml @ 125 mls/hr Q8H IVPB Last administered on 16:49; Admin Dose 125 MLS/HR; Start 05/23/17 at 09:00 Pantoprazole (Protonix Tab) 40 mg DAILY@06 PO Last administered on 05/29/17 05 :00; Admin Dose 40 MG; Start 05/25/17 at 06:00 Enoxaparin Sodium 40 mg 40 mg DAILY SC Last administered on 05/29/17 09:02; Admin Dose 40 MG; Start 05/25/17 at 16:30 Ertapenem/Sodium Chloride (Invanz/NS) 100 ml @ 200 mls/hr Q24H IVPB Last administered on 05/28/17 21:25; Admin Dose 200 MLS/HR; Start 05/26/17 at 20:00 ; Stop 07/20/17 at 20:29 Hydromorphone HCl (Dilaudid) 1 mg Q2H PRN IV PAIN Last administered on 18:11; Admin Dose 1 MG; Start 05/29/17 at 11:00 Miscellaneous Information (*Rx Drug Level Order Reminder*) 1 ONCE ONCE XX ; Start 05/30/17 at 08:00; Stop 05/30/17 at 08:01 HOLLY PETERSON NP May 29, 2017 18:27
[2017-05-29 19:53] VITALS: BP 137/79; RESP 22
[2017-05-29] MEDS: ERTAPENEM SODIUM 1 GM in SOD CHLORIDE 0.9% 100 ML IVPB SCH (20:23)
[2017-05-29] MEDS: LITHIUM CARBONATE 300 MG CAP PO SCH (20:24)
[2017-05-29] MEDS: AMITRIPTYLINE 50 MG TAB PO SCH (20:24)
[2017-05-29] MEDS: TAMSULOSIN (SR) 0.4 MG CAP PO SCH (21:00)
[2017-05-30] MEDS: VANCOMYCIN 1 GM in NS 250 ML IVPB SCH ×2 (02:18→10:09)
[2017-05-30 02:25] VITALS: BP 111/67; RESP 18
[2017-05-30] MEDS: SOD CHLORIDE 0.9% 1,000 ML IV SCH ×3 (05:02→19:37)
[2017-05-30] MEDS: PANTOPRAZOLE (EC) 40 MG TAB PO SCH (05:51)
[2017-05-30] MEDS: HYDROmorphONE 1 MG/ML SYG IV PRN ×9 (05:55→23:42)
[2017-05-30 07:40] VITALS: BP 119/71; RESP 16
[2017-05-30] MEDS: ENOXAPARIN 40 MG/0.4 ML SYG SC SCH (08:50)
[2017-05-30] MEDS: DULOXETINE 30 MG CAP DR PO SCH (08:50)
[2017-05-30] MEDS: ASPIRIN 325 MG TAB PO SCH (08:50)
[2017-05-30] MEDS: BACLOFEN 10 MG TAB PO SCH ×3 (08:50→21:51)
[2017-05-30] MEDS: GABAPENTIN 300 MG CAP PO SCH ×3 (08:50→21:50)
[2017-05-30] MEDS: COLLAGENASE 30 GM TUBE TOP SCH (08:51)
--- NOTE | 2017-05-30 13:36 | CONS ---
Date/Time of Note Date/Time of Note DATE: 05/30/17 TIME: 13:35 Assessment/Plan Assessment/Plan Chief Complaint/Hosp Course Patient is alert looks comfortable denies pain, no fevers Physical examination: Well-nourished, well-developed middle-aged white man who is alert in no distress. Head atraumatic normocephalic. Sclerae nonicteric. Neck is supple. Chest rise symmetrical, breath sounds clear. Abdomen soft, bowel sounds present. Extremities without cyanosis. Right stump wound to wound VAC, no erythema Assessment: 1. Right below-knee amputation stump osteomyelitis, status post stump revision on May 23, 2017 2. Bipolar disorder 3. Tobacco abuse Plan: Remain stable, on vancomycin and Invanz, status post PICC line, anticipate discharge on current antibiotics for 6 weeks. May substitute vancomycin with daptomycin once every 24 hours for convenience Discussed with RN Problems: Consultation Date/Type/Reason Admit Date/Time May 22, 2017 at 21:38 Type of Consultation: id Exam/Review of Systems Vital Signs Vitals Vital Signs Date Time Temp Pulse Resp B/P Pulse Ox O2 Delivery O2 Flow Rate FiO2 05/30/17 07:40 98.2 70 16 119/71 100 Intake and Output 05/29/17 05/29/17 05/30/17 15:00 23:00 07:00 Intake Total 250 ml 3025 ml 1255 ml Balance 250 ml 3025 ml 1255 ml Results Result Diagram: 05/27/17 0606 05/29/17 0440 Results 24 hrs Laboratory Tests Test 05/30/17 08:25 Vancomycin Level Trough 14.5 Medications Medications Current Medications Sodium Chloride (NS) 1,000 ml @ 75 mls/hr [id number] IV Last administered on 05/29t 16:08; Admin Dose 75 MLS/HR; Start 05/22/17 at 23:42 Ondansetron HCl (Zofran Inj) 4 mg Q6H PRN IV NAUSEA AND/OR VOMITING; Start 10/28 at 00:00 Acetaminophen (Tylenol Tab) 650 mg Q6H PRN PO PAIN LEVEL 1-3 OR FEVER; Start at 00:00 Docusate Sodium (Colace) 100 mg Q12H PRN PO CONSTIPATION; Start 05/23/17 at 00: 00 Bisacodyl (Dulcolax) 5 mg DAILY PRN PO CONSTIPATION; Start 05/23/17 at 00:00 Amitriptyline HCl (Elavil) 100 mg QHS PO Last administered on 05/29/17 20:24; Admin Dose 100 MG; Start 05/23/17 at 21:00 Aspirin (Aspirin) 325 mg DAILY PO Last administered on 05/30/17 08:50; Admin Dose 325 MG; Start 05/23/17 at 09:00 Baclofen (Lioresal) 10 mg TID PO Last administered on 05/30/17 12:57; Admin Dose 10 MG; Start 05/23/17 at 09:00 Collagenase (Santyl) 1 applic DAILY TOP ; Start 05/23/17 at 09:00 Duloxetine HCl (Cymbalta) 60 mg DAILY PO Last administered on 05/30/17 08:50; Admin Dose 60 MG; Start 05/23/17 at 09:00 Gabapentin (Neurontin) 600 mg TID PO Last administered on 05/30/17 12:57; Admin Dose 600 MG; Start 05/23/17 at 09:00 [place] Carbonate ([place] Carbonate) 600 mg QHS PO Last administered on 20:24; Admin Dose 600 MG; Start 05/23/17 at 21:00 Tamsulosin HCl 0.4 mg 0.4 mg DAILY@21 PO Last administered on 05/29/17 21:00; Admin Dose 0.4 MG; Start 05/23/17 at 21:00 Vancomycin HCl (Vancocin) 250 ml @ 125 mls/hr Q8H IVPB Last administered on 10:09; Admin Dose 125 MLS/HR; Start 05/23/17 at 09:00 Pantoprazole (Protonix Tab) 40 mg DAILY@06 PO Last administered on 05/30/17 05 :51; Admin Dose 40 MG; Start 05/25/17 at 06:00 Enoxaparin Sodium 40 mg 40 mg DAILY SC Last administered on 05/30/17 08:50; Admin Dose 40 MG; Start 05/25/17 at 16:30 Ertapenem/Sodium Chloride (Invanz/NS) 100 ml @ 200 mls/hr Q24H IVPB Last administered on 05/29/17 20:23; Admin Dose 200 MLS/HR; Start 05/26/17 at 20:00 ; Stop 07/20/17 at 20:29 Hydromorphone HCl (Dilaudid) 1 mg Q2H PRN IV PAIN Last administered on t 13:00; Admin Dose 1 MG; Start 05/29/17 at 11:00 HOLLY PETERSON NP May 30, 2017 13:36
[2017-05-30 14:25] VITALS: BP 133/72; RESP 18
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
--- NOTE | 2017-05-30 16:35 | PN ---
Date/Time of Note Date/Time of Note DATE: 05/30/17 TIME: 16:33 Assessment/Plan Lines/Catheters IV Catheter Type (from Nrs): PICC Line Osei in Place (from Nrs): No Assessment/Plan Chief Complaint/Hosp Course -Vac changed and with adequate granulation tissue, can be discharged Problems: Subjective 24 Hr Interval Summary no new vascular issues overnight Exam/Review of Systems Vital Signs Vitals Vital Signs Date Time Temp Pulse Resp B/P Pulse Ox O2 Delivery O2 Flow Rate FiO2 05/30/17 14:25 98.7 88 18 133/72 96 Intake and Output 05/29/17 05/29/17 05/30/17 15:00 23:00 07:00 Intake Total 250 ml 3025 ml 1255 ml Balance 250 ml 3025 ml 1255 ml Exam Free Text/Dictation RLE: palpable femoral pulse, motor/sensory intact, vac intact and functional, adequate granulation tissue developed Results Result Diagram: 05/27/17 0606 05/29/17 0440 SARAH WISE MD May 30, 2017 16:35
[2017-05-30] MEDS: VANCOMYCIN 1.5 GM in SOD CHLORIDE 0.9% 250 ML IVPB SCH (17:05)
[2017-05-30 20:34] VITALS: BP 129/80; RESP 22
[2017-05-30] MEDS: LITHIUM CARBONATE 300 MG CAP PO SCH (21:50)
[2017-05-30] MEDS: ERTAPENEM SODIUM 1 GM in SOD CHLORIDE 0.9% 100 ML IVPB SCH (21:51)
[2017-05-30] MEDS: TAMSULOSIN (SR) 0.4 MG CAP PO SCH (21:51)
[2017-05-30] MEDS: AMITRIPTYLINE 50 MG TAB PO SCH (21:51)
[2017-05-31] MEDS: VANCOMYCIN 1.5 GM in SOD CHLORIDE 0.9% 250 ML IVPB SCH ×2 (00:40→08:26)
[2017-05-31] MEDS: HYDROmorphONE 1 MG/ML SYG IV PRN ×9 (06:48→23:46)
[2017-05-31] MEDS: PANTOPRAZOLE (EC) 40 MG TAB PO SCH (06:48)
[2017-05-31] MEDS: SOD CHLORIDE 0.9% 1,000 ML IV SCH ×2 (07:42→21:02)
[2017-05-31] MEDS: ENOXAPARIN 40 MG/0.4 ML SYG SC SCH (08:26)
[2017-05-31] MEDS: GABAPENTIN 300 MG CAP PO SCH ×3 (08:26→21:02)
[2017-05-31] MEDS: COLLAGENASE 30 GM TUBE TOP SCH (08:27)
[2017-05-31] MEDS: DULOXETINE 30 MG CAP DR PO SCH (08:27)
[2017-05-31] MEDS: ASPIRIN 325 MG TAB PO SCH (08:27)
[2017-05-31] MEDS: BACLOFEN 10 MG TAB PO SCH ×3 (08:27→21:03)
[2017-05-31 08:53] VITALS: BP 117/63; RESP 21
[2017-05-31 14:56] VITALS: BP 138/78; RESP 20
--- NOTE | 2017-05-31 15:35 | CONS ---
Date/Time of Note Date/Time of Note DATE: 05/31/17 TIME: 15:35 Assessment/Plan Assessment/Plan Chief Complaint/Hosp Course Patient is alert looks comfortable denies pain, no fevers Physical examination: Well-nourished, well-developed middle-aged white man who is alert in no distress. Head atraumatic normocephalic. Sclerae nonicteric. Neck is supple. Chest rise symmetrical, breath sounds clear. Abdomen soft, bowel sounds present. Extremities without cyanosis. Right stump wound to wound VAC, no erythema Assessment: 1. Right below-knee amputation stump osteomyelitis, status post stump revision on May 23, 2017 2. Bipolar disorder 3. Tobacco abuse Plan: Remain stable, on vancomycin and Invanz, status post PICC line, anticipate discharge on current antibiotics for 6 weeks. May substitute vancomycin with daptomycin once every 24 hours for convenience Discussed with RN Problems: Consultation Date/Type/Reason Admit Date/Time May 22, 2017 at 21:38 Type of Consultation: id Exam/Review of Systems Vital Signs Vitals Vital Signs Date Time Temp Pulse Resp B/P Pulse Ox O2 Delivery O2 Flow Rate FiO2 05/31/17 14:56 98.1 98 20 138/78 99 Intake and Output 05/30/17 05/30/17 05/31/17 15:00 23:00 07:00 Intake Total 250 ml 2100 ml 1300 ml Output Total 0 ml Balance 250 ml 2100 ml 1300 ml Results Result Diagram: 05/27/17 0606 05/29/17 0440 Medications Medications Current Medications Sodium Chloride (NS) 1,000 ml @ 75 mls/hr [id number] IV Last administered on 05/30t 19:37; Admin Dose 75 MLS/HR; Start 05/22/17 at 23:42 Ondansetron HCl (Zofran Inj) 4 mg Q6H PRN IV NAUSEA AND/OR VOMITING; Start 10/28 at 00:00 Acetaminophen (Tylenol Tab) 650 mg Q6H PRN PO PAIN LEVEL 1-3 OR FEVER; Start at 00:00 Docusate Sodium (Colace) 100 mg Q12H PRN PO CONSTIPATION; Start 05/23/17 at 00: 00 Bisacodyl (Dulcolax) 5 mg DAILY PRN PO CONSTIPATION; Start 05/23/17 at 00:00 Amitriptyline HCl (Elavil) 100 mg QHS PO Last administered on 05/30/17 21:51; Admin Dose 100 MG; Start 05/23/17 at 21:00 Aspirin (Aspirin) 325 mg DAILY PO Last administered on 05/31/17 08:27; Admin Dose 325 MG; Start 05/23/17 at 09:00 Baclofen (Lioresal) 10 mg TID PO Last administered on 05/31/17 12:52; Admin Dose 10 MG; Start 05/23/17 at 09:00 Collagenase (Santyl) 1 applic DAILY TOP ; Start 05/23/17 at 09:00 Duloxetine HCl (Cymbalta) 60 mg DAILY PO Last administered on 05/31/17 08:27; Admin Dose 60 MG; Start 05/23/17 at 09:00 Gabapentin (Neurontin) 600 mg TID PO Last administered on 05/31/17 12:52; Admin Dose 600 MG; Start 05/23/17 at 09:00 [place] Carbonate ([place] Carbonate) 600 mg QHS PO Last administered on 21:50; Admin Dose 600 MG; Start 05/23/17 at 21:00 Tamsulosin HCl (Flomax) 0.4 mg DAILY@21 PO Last administered on 05/30/17 21:51 ; Admin Dose 0.4 MG; Start 05/23/17 at 21:00 Pantoprazole (Protonix Tab) 40 mg DAILY@06 PO Last administered on 05/31/17 06 :48; Admin Dose 40 MG; Start 05/25/17 at 06:00 Enoxaparin Sodium 40 mg 40 mg DAILY SC Last administered on 05/31/17 08:26; Admin Dose 40 MG; Start 05/25/17 at 16:30 Ertapenem/Sodium Chloride (Invanz/NS) 100 ml @ 200 mls/hr Q24H IVPB Last administered on 05/30/17 21:51; Admin Dose 200 MLS/HR; Start 05/26/17 at 20:00 ; Stop 07/20/17 at 20:29 Hydromorphone HCl 1 mg 1 mg Q2H PRN IV PAIN Last administered on 05/31/17 15: 29; Admin Dose 1 MG; Start 05/29/17 at 11:00 Vancomycin HCl/ Sodium Chloride (Vancocin/NS) 250 ml @ 83.333 mls/ hr Q8H IVPB Last administered on 05/31/17t 08:26; Admin Dose 83.333 MLS/HR; Start at 16:00 HOLLY PETERSON NP May 31, 2017 15:35
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
[2017-05-31] MEDS: VANCOMYCIN 1 GM in NS 250 ML IVPB SCH (17:27)
[2017-05-31 20:37] VITALS: BP 145/89; RESP 18
[2017-05-31] MEDS: LITHIUM CARBONATE 300 MG CAP PO SCH (21:02)
[2017-05-31] MEDS: ERTAPENEM SODIUM 1 GM in SOD CHLORIDE 0.9% 100 ML IVPB SCH (21:02)
[2017-05-31] MEDS: TAMSULOSIN (SR) 0.4 MG CAP PO SCH (21:03)
[2017-05-31] MEDS: AMITRIPTYLINE 50 MG TAB PO SCH (21:43)
[2017-06-01] MEDS: HYDROmorphONE 1 MG/ML SYG IV PRN ×10 (02:02→21:55)
[2017-06-01] MEDS: VANCOMYCIN 1 GM in NS 250 ML IVPB SCH ×3 (02:03→18:01)
[2017-06-01 02:48] VITALS: BP 116/67; RESP 18
[2017-06-01] MEDS: PANTOPRAZOLE (EC) 40 MG TAB PO SCH (05:56)
[2017-06-01 06:57] LABS: CREATININE 0.63 mg/dl (0.61-1.24)
[2017-06-01 08:01] VITALS: BP 115/60; RESP 18
[2017-06-01] MEDS: ASPIRIN 325 MG TAB PO SCH (08:08)
[2017-06-01] MEDS: GABAPENTIN 300 MG CAP PO SCH ×3 (08:08→21:00)
[2017-06-01] MEDS: BACLOFEN 10 MG TAB PO SCH ×3 (08:08→21:00)
[2017-06-01] MEDS: SOD CHLORIDE 0.9% 1,000 ML IV SCH (08:08)
[2017-06-01] MEDS: DULOXETINE 30 MG CAP DR PO SCH (08:08)
[2017-06-01] MEDS: ENOXAPARIN 40 MG/0.4 ML SYG SC SCH (08:10)
[2017-06-01] MEDS: COLLAGENASE 30 GM TUBE TOP SCH (09:00)
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
[2017-06-01 15:14] VITALS: BP 128/77; RESP 18
--- NOTE | 2017-06-01 16:07 | CONS ---
Date/Time of Note Date/Time of Note DATE: 06/01/17 TIME: 16:05 Assessment/Plan Assessment/Plan Chief Complaint/Hosp Course Alert, feels good, denies pain, afebrile. Father at bedside Physical examination: Well-nourished, well-developed middle-aged white man who is alert in no distress. Head atraumatic normocephalic. Sclerae nonicteric. Neck is supple. Chest rise symmetrical, breath sounds clear. Abdomen soft, bowel sounds present. Extremities without cyanosis. Right stump wound to wound VAC, no erythema Assessment: 1. Right below-knee amputation stump osteomyelitis, status post stump revision on May 23, 2017 2. Bipolar disorder 3. Tobacco abuse Plan: Remain stable, pending placement, continue antibiotics for 6 weeks, may substitute vancomycin with daptomycin once every 24 hours for convenience Discussed with RN Problems: Consultation Date/Type/Reason Admit Date/Time May 22, 2017 at 21:38 Type of Consultation: id Exam/Review of Systems Vital Signs Vitals Vital Signs Date Time Temp Pulse Resp B/P Pulse Ox O2 Delivery O2 Flow Rate FiO2 06/01/17 15:14 97.9 81 18 128/77 97 Intake and Output 05/31/17 05/31/17 06/01/17 15:00 23:00 07:00 Intake Total 2200 ml 1420 ml Output Total 0 ml Balance 2200 ml 1420 ml Results Result Diagram: 06/01/17 0554 Results 24 hrs Laboratory Tests Test 06/01/17 05:54 Blood Urea Nitrogen 8 Creatinine 0.63 Medications Medications Current Medications Ondansetron HCl (Zofran Inj) 4 mg Q6H PRN IV NAUSEA AND/OR VOMITING; Start 10/28 at 00:00 Acetaminophen (Tylenol Tab) 650 mg Q6H PRN PO PAIN LEVEL 1-3 OR FEVER; Start at 00:00 Docusate Sodium (Colace) 100 mg Q12H PRN PO CONSTIPATION; Start 05/23/17 at 00: 00 Bisacodyl (Dulcolax) 5 mg DAILY PRN PO CONSTIPATION; Start 05/23/17 at 00:00 Amitriptyline HCl (Elavil) 100 mg QHS PO Last administered on 05/31/17t 21:43; Admin Dose 100 MG; Start 05/23/17 at 21:00 Aspirin (Aspirin) 325 mg DAILY PO Last administered on 06/01/17 08:08; Admin Dose 325 MG; Start 05/23/17 at 09:00 Baclofen (Lioresal) 10 mg TID PO Last administered on 06/01/17 14:05; Admin Dose 10 MG; Start 05/23/17 at 09:00 Collagenase (Santyl) 1 applic DAILY TOP ; Start 05/23/17 at 09:00 Duloxetine HCl (Cymbalta) 60 mg DAILY PO Last administered on 06/01/17 08:08; Admin Dose 60 MG; Start 05/23/17 at 09:00 Gabapentin (Neurontin) 600 mg TID PO Last administered on 06/01/17 14:05; Admin Dose 600 MG; Start 05/23/17 at 09:00 [place] Carbonate ([place] Carbonate) 600 mg QHS PO Last administered on 21:02; Admin Dose 600 MG; Start 05/23/17 at 21:00 Tamsulosin HCl (Flomax) 0.4 mg DAILY@21 PO Last administered on 05/31/17 21:03 ; Admin Dose 0.4 MG; Start 05/23/17 at 21:00 Pantoprazole (Protonix Tab) 40 mg DAILY@06 PO Last administered on 06/01/17 05 :56; Admin Dose 40 MG; Start 05/25/17 at 06:00 Enoxaparin Sodium 40 mg 40 mg DAILY SC Last administered on 06/01/17 08:10; Admin Dose 40 MG; Start 05/25/17 at 16:30 Ertapenem/Sodium Chloride (Invanz/NS) 100 ml @ 200 mls/hr Q24H IVPB Last administered on 05/31/17 21:02; Admin Dose 200 MLS/HR; Start 05/26/17 at 20:00 ; Stop 07/20/17 at 20:29 Hydromorphone HCl 1 mg 1 mg Q2H PRN IV PAIN Last administered on 06/01/17 14: 05; Admin Dose 1 MG; Start 05/29/17 at 11:00 Vancomycin HCl (Vancocin) 250 ml @ 125 mls/hr Q8H IVPB Last administered on 09:23; Admin Dose 125 MLS/HR; Start 05/31/17 at 18:00 HOLLY PETERSON NP Jun 01, 2017 16:06
[2017-06-01 20:49] VITALS: BP 134/78; RESP 18
[2017-06-01] MEDS: ERTAPENEM SODIUM 1 GM in SOD CHLORIDE 0.9% 100 ML IVPB SCH (21:00)
[2017-06-01] MEDS: TAMSULOSIN (SR) 0.4 MG CAP PO SCH (21:00)
[2017-06-01] MEDS: AMITRIPTYLINE 50 MG TAB PO SCH (21:00)
[2017-06-01] MEDS: LITHIUM CARBONATE 300 MG CAP PO SCH (21:01)
[2017-06-02] MEDS: HYDROmorphONE 1 MG/ML SYG IV PRN ×9 (00:01→22:48)
[2017-06-02] MEDS: VANCOMYCIN 1 GM in NS 250 ML IVPB SCH ×3 (02:04→17:27)
[2017-06-02 02:18] VITALS: BP 119/76; RESP 18
[2017-06-02] MEDS ORDERED: ALTEPLASE (CATHFLO) 2 MG INJ CATHETER ONE (02:30)
[2017-06-02] MEDS: PANTOPRAZOLE (EC) 40 MG TAB PO SCH (05:32)
[2017-06-02 08:00] VITALS: BP 110/65; RESP 22
[2017-06-02] MEDS: COLLAGENASE 30 GM TUBE TOP SCH (09:00)
[2017-06-02] MEDS: BACLOFEN 10 MG TAB PO SCH ×3 (09:04→20:55)
[2017-06-02] MEDS: DULOXETINE 30 MG CAP DR PO SCH (09:04)
[2017-06-02] MEDS: ASPIRIN 325 MG TAB PO SCH (09:04)
[2017-06-02] MEDS: GABAPENTIN 300 MG CAP PO SCH ×3 (09:04→20:55)
[2017-06-02] MEDS: ENOXAPARIN 40 MG/0.4 ML SYG SC SCH (09:05)
[2017-06-02 14:00] VITALS: BP 126/77; RESP 20
--- NOTE | 2017-06-02 14:20 | CONS ---
Date/Time of Note Date/Time of Note DATE: 06/02/17 TIME: 14:20 Assessment/Plan Assessment/Plan Chief Complaint/Hosp Course Alert, feels good, denies pain, afebrile. Father at bedside Physical examination: Well-nourished, well-developed middle-aged white man who is alert in no distress. Head atraumatic normocephalic. Sclerae nonicteric. Neck is supple. Chest rise symmetrical, breath sounds clear. Abdomen soft, bowel sounds present. Extremities without cyanosis. Right stump wound to wound VAC, no erythema Assessment: 1. Right below-knee amputation stump osteomyelitis, status post stump revision on May 23, 2017 2. Bipolar disorder 3. Tobacco abuse Plan: Remain stable, pending placement, continue antibiotics for 6 weeks, may substitute vancomycin with daptomycin once every 24 hours for convenience Discussed with RN Problems: Consultation Date/Type/Reason Admit Date/Time May 22, 2017 at 21:38 Type of Consultation: id Exam/Review of Systems Vital Signs Vitals Vital Signs Date Time Temp Pulse Resp B/P Pulse Ox O2 Delivery O2 Flow Rate FiO2 06/02/17 08:00 97.5 90 22 110/65 99 Intake and Output 06/01/17 06/01/17 06/02/17 14:59 22:59 06:59 Intake Total 250 ml 1975 ml 1110 ml Output Total 0 ml Balance 250 ml 1975 ml 1110 ml Results Result Diagram: 06/01/17 0554 Medications Medications Current Medications Ondansetron HCl (Zofran Inj) 4 mg Q6H PRN IV NAUSEA AND/OR VOMITING; Start 10/28 at 00:00 Acetaminophen (Tylenol Tab) 650 mg Q6H PRN PO PAIN LEVEL 1-3 OR FEVER; Start at 00:00 Docusate Sodium (Colace) 100 mg Q12H PRN PO CONSTIPATION; Start 05/23/17 at 00: 00 Bisacodyl (Dulcolax) 5 mg DAILY PRN PO CONSTIPATION; Start 05/23/17 at 00:00 Amitriptyline HCl (Elavil) 100 mg QHS PO Last administered on 06/01/17 21:00; Admin Dose 100 MG; Start 05/23/17 at 21:00 Aspirin (Aspirin) 325 mg DAILY PO Last administered on 06/02/17 09:04; Admin Dose 325 MG; Start 05/23/17 at 09:00 Baclofen (Lioresal) 10 mg TID PO Last administered on 06/02/17 14:06; Admin Dose 10 MG; Start 05/23/17 at 09:00 Collagenase (Santyl) 1 applic DAILY TOP ; Start 05/23/17 at 09:00 Duloxetine HCl (Cymbalta) 60 mg DAILY PO Last administered on 06/02/17 09:04; Admin Dose 60 MG; Start 05/23/17 at 09:00 Gabapentin (Neurontin) 600 mg TID PO Last administered on 06/02/17 14:05; Admin Dose 600 MG; Start 05/23/17 at 09:00 [place] Carbonate ([place] Carbonate) 600 mg QHS PO Last administered on 21:01; Admin Dose 600 MG; Start 05/23/17 at 21:00 Tamsulosin HCl (Flomax) 0.4 mg DAILY@21 PO Last administered on 06/01/17 21:00 ; Admin Dose 0.4 MG; Start 05/23/17 at 21:00 Pantoprazole (Protonix Tab) 40 mg DAILY@06 PO Last administered on 06/02/17 05 :32; Admin Dose 40 MG; Start 05/25/17 at 06:00 Enoxaparin Sodium 40 mg 40 mg DAILY SC Last administered on 06/02/17 09:05; Admin Dose 40 MG; Start 05/25/17 at 16:30 Ertapenem/Sodium Chloride (Invanz/NS) 100 ml @ 200 mls/hr Q24H IVPB Last administered on 06/01/17 21:00; Admin Dose 200 MLS/HR; Start 05/26/17 at 20:00 ; Stop 07/20/17 at 20:29 Hydromorphone HCl 1 mg 1 mg Q2H PRN IV PAIN Last administered on 06/02/17 09: 37; Admin Dose 1 MG; Start 05/29/17 at 11:00 Vancomycin HCl (Vancocin) 250 ml @ 125 mls/hr Q8H IVPB Last administered on 09:07; Admin Dose 125 MLS/HR; Start 05/31/17 at 18:00 Miscellaneous Information (*Rx Drug Level Order Reminder*) VANCOMYCIN TROUGH AT 1700 ONCE ONCE XX ; Start 06/03/17 at 17:00; Stop 06/03/17 at 17:01 HOLLY PETERSON NP Jun 02, 2017 14:20
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
[2017-06-02 20:05] VITALS: BP 135/80; RESP 16
[2017-06-02] MEDS: ERTAPENEM SODIUM 1 GM in SOD CHLORIDE 0.9% 100 ML IVPB SCH (20:53)
[2017-06-02] MEDS: AMITRIPTYLINE 50 MG TAB PO SCH (20:54)
[2017-06-02] MEDS: TAMSULOSIN (SR) 0.4 MG CAP PO SCH (20:55)
[2017-06-02] MEDS: LITHIUM CARBONATE 300 MG CAP PO SCH (20:55)
[2017-06-03] MEDS: HYDROmorphONE 1 MG/ML SYG IV PRN ×10 (01:00→22:12)
[2017-06-03] MEDS: VANCOMYCIN 1 GM in NS 250 ML IVPB SCH ×3 (01:01→19:07)
[2017-06-03 02:21] VITALS: BP 118/65; RESP 18
[2017-06-03] MEDS: PANTOPRAZOLE (EC) 40 MG TAB PO SCH (06:04)
[2017-06-03 08:00] VITALS: BP 125/72; RESP 22
[2017-06-03] MEDS: BACLOFEN 10 MG TAB PO SCH ×3 (08:07→20:13)
[2017-06-03] MEDS: ASPIRIN 325 MG TAB PO SCH (08:08)
[2017-06-03] MEDS: DULOXETINE 30 MG CAP DR PO SCH (08:08)
[2017-06-03] MEDS: ENOXAPARIN 40 MG/0.4 ML SYG SC SCH (08:12)
[2017-06-03] MEDS: GABAPENTIN 300 MG CAP PO SCH ×3 (08:15→20:13)
[2017-06-03] MEDS: COLLAGENASE 30 GM TUBE TOP SCH (10:05)
[2017-06-03 14:00] VITALS: BP 129/73; RESP 18
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
[2017-06-03] MEDS: TAMSULOSIN (SR) 0.4 MG CAP PO SCH (20:13)
[2017-06-03] MEDS: AMITRIPTYLINE 50 MG TAB PO SCH (20:13)
[2017-06-03] MEDS: LITHIUM CARBONATE 300 MG CAP PO SCH (20:13)
[2017-06-03 20:28] VITALS: BP 140/73; RESP 18
[2017-06-03] MEDS: ERTAPENEM SODIUM 1 GM in SOD CHLORIDE 0.9% 100 ML IVPB SCH (22:12)
[2017-06-04] MEDS: HYDROmorphONE 1 MG/ML SYG IV PRN ×10 (00:14→18:47)
[2017-06-04] MEDS: VANCOMYCIN 1 GM in NS 250 ML IVPB SCH ×3 (02:07→17:50)
[2017-06-04 02:52] VITALS: BP 113/67; RESP 18
[2017-06-04 06:00] LABS: BASOPHIL # 0.1 10^3/ul (0.0-0.1); BASOPHILS % 1.2 % (0.0-2.0); EOSINOPHILS # 0.6 10^3/ul (0.0-0.5); EOSINOPHILS % 9.3 % (0.0-7.0); HEMATOCRIT 31.7 % (42.0-52.0); LYMPHOCYTES # 1.8 10^3/ul (0.8-2.9); LYMPHOCYTES % 28.5 % (15.0-51.0); MEAN CORPUSCULAR HEMOGLOBIN 26.3 pg (29.0-33.0); MEAN CORPUSCULAR HGB CONC 31.5 g/dl (32.0-37.0); MEAN CORPUSCULAR VOLUME 83.4 fl (82.0-101.0); MEAN PLATELET VOLUME 9.5 fl (7.4-10.4); MONOCYTE # 0.4 10^3/ul (0.3-0.9); MONOCYTES % 5.9 % (0.0-11.0); NEUTROPHIL # 3.5 10^3/ul (1.6-7.5); NEUTROPHILS % 54.8 % (39.0-77.0); PLATELET COUNT 351 10^3/UL (140-415); WHITE BLOOD COUNT 6.5 10^3/ul (4.8-10.8)
[2017-06-04] MEDS: PANTOPRAZOLE (EC) 40 MG TAB PO SCH (06:28)
[2017-06-04 06:49] LABS: CREATININE 0.69 mg/dl (0.61-1.24); MAGNESIUM 1.8 mg/dl (1.7-2.5); PHOSPHORUS 4.1 mg/dl (2.5-4.9); POTASSIUM 3.4 mmol/L (3.5-5.1)
[2017-06-04 07:40] VITALS: BP 120/65; RESP 16
[2017-06-04] MEDS: BACLOFEN 10 MG TAB PO SCH ×3 (08:24→20:40)
[2017-06-04] MEDS: ASPIRIN 325 MG TAB PO SCH (08:24)
[2017-06-04] MEDS: DULOXETINE 30 MG CAP DR PO SCH (08:24)
[2017-06-04] MEDS: GABAPENTIN 300 MG CAP PO SCH ×3 (08:24→20:40)
[2017-06-04] MEDS: ENOXAPARIN 40 MG/0.4 ML SYG SC SCH (08:25)
[2017-06-04] MEDS: COLLAGENASE 30 GM TUBE TOP SCH (09:00)
--- NOTE | 2017-06-04 13:36 | CONS ---
Date/Time of Note Date/Time of Note DATE: 06/04/17 TIME: 13:35 Assessment/Plan Assessment/Plan Chief Complaint/Hosp Course Alert, feels good, denies pain, afebrile. Father at bedside Physical examination: Well-nourished, well-developed middle-aged white man who is alert in no distress. Head atraumatic normocephalic. Sclerae nonicteric. Neck is supple. Chest rise symmetrical, breath sounds clear. Abdomen soft, bowel sounds present. Extremities without cyanosis. Right stump wound to wound VAC, no erythema Assessment: 1. Right below-knee amputation stump osteomyelitis, status post stump revision on May 23, 2017 2. Bipolar disorder 3. Tobacco abuse Plan: Remain stable, pending placement, continue antibiotics for 4 more weeks, may substitute vancomycin with daptomycin once every 24 hours for convenience Discussed with RN Problems: Consultation Date/Type/Reason Admit Date/Time May 22, 2017 at 21:38 Type of Consultation: id Exam/Review of Systems Vital Signs Vitals Vital Signs Date Time Temp Pulse Resp B/P Pulse Ox O2 Delivery O2 Flow Rate FiO2 06/04/17 07:40 98.0 90 16 120/65 96 Intake and Output 06/03/17 06/03/17 06/04/17 15:00 23:00 07:00 Intake Total 250 ml 1850 ml 1100 ml Balance 250 ml 1850 ml 1100 ml Results Result Diagram: 06/04/17 0432 06/04/17 0439 Results 24 hrs Laboratory Tests Test 06/03/17 17:44 06/04/17 04:32 06/04/17 04:39 Vancomycin Level Trough 11.7 White Blood Count 6.5 Red Blood Count 3.80 L Hemoglobin 10.0 L Hematocrit 31.7 L Mean Corpuscular Volume 83.4 Mean Corpuscular Hemoglobin 26.3 L Mean Corpuscular Hemoglobin Concent 31.5 L Red Cell Distribution Width 13.0 Platelet Count 351 Mean Platelet Volume 9.5 Neutrophils % 54.8 Lymphocytes % 28.5 Monocytes % 5.9 Eosinophils % 9.3 H Basophils % 1.2 Nucleated Red Blood Cells % 0.0 Neutrophils # 3.5 Lymphocytes # 1.8 Monocytes # 0.4 Eosinophils # 0.6 H Basophils # 0.1 Nucleated Red Blood Cells # 0.0 Sodium Level 145 H Potassium Level 3.4 L Chloride Level 103 Carbon Dioxide Level 28 Anion Gap 17 H Blood Urea Nitrogen 9 Creatinine 0.69 Glucose Level 108 Calcium Level 9.0 Phosphorus Level 4.1 Magnesium Level 1.8 Medications Medications Current Medications Ondansetron HCl (Zofran Inj) 4 mg Q6H PRN IV NAUSEA AND/OR VOMITING; Start 10/28 at 00:00 Acetaminophen (Tylenol Tab) 650 mg Q6H PRN PO PAIN LEVEL 1-3 OR FEVER; Start at 00:00 Docusate Sodium (Colace) 100 mg Q12H PRN PO CONSTIPATION; Start 05/23/17 at 00: 00 Bisacodyl (Dulcolax) 5 mg DAILY PRN PO CONSTIPATION; Start 05/23/17 at 00:00 Amitriptyline HCl (Elavil) 100 mg QHS PO Last administered on 06/03/17 20:13; Admin Dose 100 MG; Start 05/23/17 at 21:00 Aspirin (Aspirin) 325 mg DAILY PO Last administered on 06/04/17 08:24; Admin Dose 325 MG; Start 05/23/17 at 09:00 Baclofen (Lioresal) 10 mg TID PO Last administered on 06/04/17 12:30; Admin Dose 10 MG; Start 05/23/17 at 09:00 Collagenase (Santyl) 1 applic DAILY TOP ; Start 05/23/17 at 09:00 Duloxetine HCl (Cymbalta) 60 mg DAILY PO Last administered on 06/04/17 08:24; Admin Dose 60 MG; Start 05/23/17 at 09:00 Gabapentin (Neurontin) 600 mg TID PO Last administered on 06/04/17 12:30; Admin Dose 600 MG; Start 05/23/17 at 09:00 [place] Carbonate ([place] Carbonate) 600 mg QHS PO Last administered on 20:13; Admin Dose 600 MG; Start 05/23/17 at 21:00 Tamsulosin HCl (Flomax) 0.4 mg DAILY@21 PO Last administered on 06/03/17 20:13 ; Admin Dose 0.4 MG; Start 05/23/17 at 21:00 Pantoprazole (Protonix Tab) 40 mg DAILY@06 PO Last administered on 06/04/17 06 :28; Admin Dose 40 MG; Start 05/25/17 at 06:00 Enoxaparin Sodium 40 mg 40 mg DAILY SC Last administered on 06/04/17 08:25; Admin Dose 40 MG; Start 05/25/17 at 16:30 Ertapenem/Sodium Chloride (Invanz/NS) 100 ml @ 200 mls/hr Q24H IVPB Last administered on 06/03/17 22:12; Admin Dose 200 MLS/HR; Start 05/26/17 at 20:00 ; Stop 07/20/17 at 20:29 Hydromorphone HCl 1 mg 1 mg Q2H PRN IV PAIN Last administered on 06/04/17 12: 30; Admin Dose 1 MG; Start 05/29/17 at 11:00 Vancomycin HCl (Vancocin) 250 ml @ 125 mls/hr Q8H IVPB Last administered on 10:33; Admin Dose 125 MLS/HR; Start 05/31/17 at 18:00 HOLLY PETERSON NP Jun 04, 2017 13:36
[2017-06-04 14:17] VITALS: BP 128/76; RESP 18
--- NOTE | 2017-06-04 16:18 | PN ---
Date/Time of Note Date/Time of Note DATE: 06/04/17 TIME: 16:16 Assessment/Plan VTE Prophylaxis VTE Prophylaxis Intervention: heparin Lines/Catheters IV Catheter Type (from Nrs): PICC Line Central line still needed: No Urinary Cath still in place: No Assessment/Plan Chief Complaint/Hosp Course 36 yo male s/p AKA with resulting stump infection and osteomyelitis - Continue abx per ID consult, vancomycin and ertapenem [place] for bipolar d/o Discharge planning underway to SNF vs [facility] able to be [facility] and receive IV abx Problems: Subjective 24 Hr Interval Summary Free Text/Dictation No acute event patient feels well, very happy wiht improvement in stump infection Wishes to be discharged back to [facility], rather than to SNF Exam/Review of Systems Vital Signs Vitals Vital Signs Date Time Temp Pulse Resp B/P Pulse Ox O2 Delivery O2 Flow Rate FiO2 06/04/17 14:17 99.1 93 18 128/76 96 Intake and Output 06/03/17 06/03/17 06/04/17 15:00 23:00 07:00 Intake Total 250 ml 1850 ml 1100 ml Balance 250 ml 1850 ml 1100 ml Exam s/p R AKA, wound vac in place. Appears clean, no drainage or surounding erythema Results Result Diagram: 06/04/17 0432 06/04/17 0439 Results 24 hrs Laboratory Tests Test 06/03/17 17:44 06/04/17 04:32 06/04/17 04:39 Vancomycin Level Trough 11.7 White Blood Count 6.5 Red Blood Count 3.80 L Hemoglobin 10.0 L Hematocrit 31.7 L Mean Corpuscular Volume 83.4 Mean Corpuscular Hemoglobin 26.3 L Mean Corpuscular Hemoglobin Concent 31.5 L Red Cell Distribution Width 13.0 Platelet Count 351 Mean Platelet Volume 9.5 Neutrophils % 54.8 Lymphocytes % 28.5 Monocytes % 5.9 Eosinophils % 9.3 H Basophils % 1.2 Nucleated Red Blood Cells % 0.0 Neutrophils # 3.5 Lymphocytes # 1.8 Monocytes # 0.4 Eosinophils # 0.6 H Basophils # 0.1 Nucleated Red Blood Cells # 0.0 Sodium Level 145 H Potassium Level 3.4 L Chloride Level 103 Carbon Dioxide Level 28 Anion Gap 17 H Blood Urea Nitrogen 9 Creatinine 0.69 Glucose Level 108 Calcium Level 9.0 Phosphorus Level 4.1 Magnesium Level 1.8 Medications Medications Current Medications Ondansetron HCl (Zofran Inj) 4 mg Q6H PRN IV NAUSEA AND/OR VOMITING; Start 10/28 at 00:00 Acetaminophen (Tylenol Tab) 650 mg Q6H PRN PO PAIN LEVEL 1-3 OR FEVER; Start at 00:00 Docusate Sodium (Colace) 100 mg Q12H PRN PO CONSTIPATION; Start 05/23/17 at 00: 00 Bisacodyl (Dulcolax) 5 mg DAILY PRN PO CONSTIPATION; Start 05/23/17 at 00:00 Amitriptyline HCl (Elavil) 100 mg QHS PO Last administered on 06/03/17 20:13; Admin Dose 100 MG; Start 05/23/17 at 21:00 Aspirin (Aspirin) 325 mg DAILY PO Last administered on 06/04/17 08:24; Admin Dose 325 MG; Start 05/23/17 at 09:00 Baclofen (Lioresal) 10 mg TID PO Last administered on 06/04/17 12:30; Admin Dose 10 MG; Start 05/23/17 at 09:00 Collagenase (Santyl) 1 applic DAILY TOP ; Start 05/23/17 at 09:00 Duloxetine HCl (Cymbalta) 60 mg DAILY PO Last administered on 06/04/17 08:24; Admin Dose 60 MG; Start 05/23/17 at 09:00 Gabapentin (Neurontin) 600 mg TID PO Last administered on 06/04/17 12:30; Admin Dose 600 MG; Start 05/23/17 at 09:00 [place] Carbonate ([place] Carbonate) 600 mg QHS PO Last administered on 20:13; Admin Dose 600 MG; Start 05/23/17 at 21:00 Tamsulosin HCl (Flomax) 0.4 mg DAILY@21 PO Last administered on 06/03/17 20:13 ; Admin Dose 0.4 MG; Start 05/23/17 at 21:00 Pantoprazole (Protonix Tab) 40 mg DAILY@06 PO Last administered on 06/04/17 06 :28; Admin Dose 40 MG; Start 05/25/17 at 06:00 Enoxaparin Sodium 40 mg 40 mg DAILY SC Last administered on 06/04/17 08:25; Admin Dose 40 MG; Start 05/25/17 at 16:30 Ertapenem/Sodium Chloride (Invanz/NS) 100 ml @ 200 mls/hr Q24H IVPB Last administered on 06/03/17 22:12; Admin Dose 200 MLS/HR; Start 05/26/17 at 20:00 ; Stop 07/20/17 at 20:29 Hydromorphone HCl 1 mg 1 mg Q2H PRN IV PAIN Last administered on 06/04/17 14: 45; Admin Dose 1 MG; Start 05/29/17 at 11:00 Vancomycin HCl (Vancocin) 250 ml @ 125 mls/hr Q8H IVPB Last administered on 10:33; Admin Dose 125 MLS/HR; Start 05/31/17 at 18:00 RAYSHAWN BISWAS MD Jun 04, 2017 16:18
[2017-06-04 20:30] VITALS: BP 130/61; RESP 20
[2017-06-04] MEDS: TAMSULOSIN (SR) 0.4 MG CAP PO SCH (20:37)
[2017-06-04] MEDS: LITHIUM CARBONATE 300 MG CAP PO SCH (20:38)
[2017-06-04] MEDS: AMITRIPTYLINE 50 MG TAB PO SCH (20:40)
[2017-06-04] MEDS: ERTAPENEM SODIUM 1 GM in SOD CHLORIDE 0.9% 100 ML IVPB SCH (21:25)
[2017-06-05 02:00] VITALS: BP 114/63; RESP 20
[2017-06-05] MEDS: VANCOMYCIN 1 GM in NS 250 ML IVPB SCH ×2 (02:41→10:21)
[2017-06-05] MEDS: HYDROmorphONE 1 MG/ML SYG IV PRN ×9 (03:19→23:09)
[2017-06-05] MEDS: PANTOPRAZOLE (EC) 40 MG TAB PO SCH (06:07)
[2017-06-05 08:00] VITALS: BP 119/67; RESP 19
[2017-06-05 08:05] VITALS: BP 130/61; RESP 20
[2017-06-05] MEDS: GABAPENTIN 300 MG CAP PO SCH ×3 (08:17→21:04)
[2017-06-05] MEDS: ASPIRIN 325 MG TAB PO SCH (08:17)
[2017-06-05] MEDS: DULOXETINE 30 MG CAP DR PO SCH (08:17)
[2017-06-05] MEDS: BACLOFEN 10 MG TAB PO SCH ×3 (08:17→21:04)
[2017-06-05] MEDS: COLLAGENASE 30 GM TUBE TOP SCH (09:00)
[2017-06-05] MEDS: ENOXAPARIN 40 MG/0.4 ML SYG SC SCH (10:21)
[2017-06-05] MEDS ORDERED: DAPTOMYCIN 500 MG in SOD CHLORIDE 0.9% 100 ML IVPB SCH (13:30)
[2017-06-05 14:00] VITALS: BP 126/62; RESP 18
[2017-06-05] MEDS ORDERED: VANCOMYCIN 1.25 GM in SOD CHLORIDE 0.9% 250 ML IVPB SCH (18:00)
[2017-06-05] MEDS: DAPTOMYCIN 500 MG in SOD CHLORIDE 0.9% 100 ML IVPB SCH (18:29)
[2017-06-05 20:00] VITALS: BP 145/69; RESP 19
[2017-06-05] MEDS: ERTAPENEM SODIUM 1 GM in SOD CHLORIDE 0.9% 100 ML IVPB SCH (20:03)
[2017-06-05] MEDS: LITHIUM CARBONATE 300 MG CAP PO SCH (21:04)
[2017-06-05] MEDS: TAMSULOSIN (SR) 0.4 MG CAP PO SCH (21:04)
[2017-06-05] MEDS: AMITRIPTYLINE 50 MG TAB PO SCH (21:04)
[2017-06-06] MEDS: HYDROmorphONE 1 MG/ML SYG IV PRN ×8 (01:20→17:45)
[2017-06-06 02:00] VITALS: BP 109/59; RESP 20
[2017-06-06] MEDS: PANTOPRAZOLE (EC) 40 MG TAB PO SCH (05:56)
[2017-06-06 08:52] VITALS: BP 120/63; RESP 18
[2017-06-06] MEDS: COLLAGENASE 30 GM TUBE TOP SCH (09:00)
[2017-06-06] MEDS: DULOXETINE 30 MG CAP DR PO SCH (09:20)
[2017-06-06] MEDS: ASPIRIN 325 MG TAB PO SCH (09:20)
[2017-06-06] MEDS: BACLOFEN 10 MG TAB PO SCH ×2 (09:20→13:30)
[2017-06-06] MEDS: GABAPENTIN 300 MG CAP PO SCH ×2 (09:20→13:30)
[2017-06-06] MEDS: ENOXAPARIN 40 MG/0.4 ML SYG SC SCH (09:21)
[2017-06-06 12:10] LABS: CREATININE 0.7 mg/dl (0.61-1.24)
[2017-06-06 15:11] VITALS: BP 122/72; RESP 20
[2017-06-06] MEDS ORDERED: GABA600T PO (16:08)
[2017-06-06] MEDS ORDERED: TRAM50TA2 PO (16:08)
[2017-06-06] MEDS ORDERED: BACL10TA PO (16:08)
[2017-06-06] MEDS ORDERED: LITH600C2 PO (16:10)
--- NOTE | 2017-06-06 16:13 | PDOCDIS ---
Discharge Instructions DIAGNOSIS Discharge Diagnosis Osteomyelitis CONDITION Patient Condition: Good HOME CARE INSTRUCTIONS: Diet Instructions: RegularSpecial Diet: regular ACTIVITY: Activity Restrictions: Keep Limb Elevated FOLLOW UP/APPOINTMENTS Follow-up Plan Follow up with your doctors for further care of surgical site infection and osteomyelitis Continue antibiotics as prescribed RAYSHAWN BISWAS MD Jun 06, 2017 16:13
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
[2017-06-06] MEDS ORDERED: ERTA1VIA IV (16:38)
[2017-06-06] MEDS ORDERED: DAPT500V IV (16:39)
[2017-06-06] MEDS: DAPTOMYCIN 500 MG in SOD CHLORIDE 0.9% 100 ML IVPB SCH (17:17)
[2017-06-06] MEDS: ERTAPENEM SODIUM 1 GM in SOD CHLORIDE 0.9% 100 ML IVPB SCH (18:03)
== END 2017-06-06 19:18 | disposition home health service (06) | DRG 498 ==
LOC: PP2 21:38
PROVIDERS: ADMIT Internal Medicine; ATTEND Internal Medicine
PROC: 0QBB0ZZ Excision of Right Lower Femur, Open Approach (ICD-10-PCS; principal; 2017-05-23 18:30)
PROC: 02HV33Z Insertion of Infusion Device into Superior Vena Cava, Percutaneous Approach (ICD-10-PCS; 2017-05-27)
DX: T87.53 Necrosis of amputation stump, right lower extremity (principal); M86.8X8 Other osteomyelitis, other site; T87.81 Dehiscence of amputation stump; T87.43 Infection of amputation stump, right lower extremity; F31.9 Bipolar disorder, unspecified; Z72.0 Tobacco use
CPT/HCPCS: 36569; 71010; 73718; 76937; 80048; 80053; 80061; 80202; 82565; 83036; 83735; 84100; 84436; 84443; 84479; 84520; 85025; 85610; 85651; 85730; 86140; 87081; C1769; C9113; J1170; J1335; J1644; J1650; J2250; J2543; J2997; J3010; J3370; J7030; J7040; J7050